=== PATIENT | male | born 1965 | race Caucasian/White ===

== ENCOUNTER 2016-11-15 08:00 | Outpatient (CLI) | payer OTHER ==
[2016-11-15 14:18] LABS: BASOPHILS % (AUTO) 0.6 %; EOSINOPHILS % (AUTO) 0.9 %; HCT - HEMATOCRIT 42.6 % (42.0-52.0); HGB - HEMOGLOBIN 14.8 g/dL (14.0-18.0); LYMPHOCYTES # (AUTO) 1.1 10^3/uL (1.5-3.5); MEAN CORPUSCULAR HEMOGLOBIN 31.1 pg (27.0-31.0); MEAN CORPUSCULAR HGB CONC 34.6 g/dL (32.0-36.0); MEAN CORPUSCULAR VOLUME 89.7 fL (80.0-94.0); MEAN PLATELET VOLUME 8.1 fL (7.4-11.4); MONOCYTES # (AUTO) 0.5 10^3/uL (0.0-1.0); MONOCYTES % (AUTO) 14.3 %; NEUTROPHILS # (AUTO) 1.9 10^3/uL (1.5-6.6); NEUTROPHILS % (AUTO) 54.2 %; NUCLEATED RED BLOOD CELLS AUTO 0.2 /100WBC; RED BLOOD COUNT 4.75 10^6/uL (4.70-6.10); RED CELL DISTRIBUTION WIDTH 13.3 % (12.0-15.0); UNCORRECTED WHITE BLOOD COUNT 3.5 x10^3/uL; WHITE BLOOD COUNT 3.5 x10^3/uL (4.8-10.8)
[2016-11-15 14:47] LABS: ALBUMIN/GLOBULIN RATIO 1.7 (1.0-2.2); BUN - BLOOD UREA NITROGEN 14 mg/dL (6-20); CALCIUM 9.2 mg/dL (8.5-10.3); CARBON DIOXIDE - CO2 27 mmol/L (21-32); CHLORIDE 107 mmol/L (101-111); CHOL/HDL RATIO 2.3 (<5.0); CHOLESTEROL 192 mg/dL; CREATININE 0.8 mg/dL (0.6-1.2); GFR - MDRD 102 (>89); GLUCOSE 93 mg/dL (70-100); HDL CHOLESTEROL 83 mg/dL; POTASSIUM 4.5 mmol/L (3.5-5.0); SODIUM 139 mmol/L (135-145); TOTAL PROTEIN 7.2 g/dL (6.7-8.2); TRIGLYCERIDES 36 mg/dL
[2016-11-15 15:07] LABS: LDL CHOLESTEROL,DIRECT 106 mg/dL
== END 2016-11-15 08:01 | disposition home or self-care (01) ==
LOC: LAB.WCP 08:00
PROVIDERS: ATTEND Family Medicine
DX: Z00.00 Encounter for general adult medical examination without abnormal findings (principal); Z12.5 Encounter for screening for malignant neoplasm of prostate; M62.82 Rhabdomyolysis
CPT/HCPCS: 36415; 80053; 80061; 82550; 84153; 85025

== ENCOUNTER 2020-04-19 15:03 | Inpatient (IN) | payer OTHER ==
--- NOTE | 2020-04-19 15:23 | ED Physician Documentation ---
History of Present Illness - Stated complaint Stated Complaint: ABD PX - Chief complaint Chief Complaint: Abd Pain - History obtained from History obtained from: Patient - History of Present Illness Timing: Today Pain level max: 0 Pain level now: 0 - Additonal information Additional information: Patient is a 54-year-old male who presents to the emergency department stating that he has had lower abdominal pain for the past 36 hours. Nothing makes it better or worse. Described as cramping. States he was able to urinate very little this morning. Feels dehydrated. Has had constipation. No diarrhea. Had a colonoscopy in 2014, revealed a polyp. Otherwise normal. He had testicular cancer 21 years ago and had prior abdominal surgery from that. nausea without vomiting. no fevers Review of Systems Ten Systems: 10 systems reviewed and negative Constitutional: denies: Fever, Chills Ears: denies: Ear pain Nose: denies: Rhinorrhea / runny nose, Congestion Throat: denies: Sore throat Respiratory: denies: Cough : denies: Dysuria Skin: denies: Rash Musculoskeletal: denies: Neck pain, Back pain Neurologic: denies: Headache PD PAST MEDICAL HISTORY - Past Medical History Cardiovascular: None Respiratory: None Endocrine/Autoimmune: None GI: None HEENT: None Psych: None Musculoskeletal: None Derm: None - Present Medications Home Medications: Ambulatory Orders Medication Instructions Recorded Confirmed No Known Home Medications 04/19/20 04/19/20 - Allergies Allergies/Adverse Reactions: Allergies Allergy/AdvReac Type Severity Reaction Status Date / Time No Known Drug Allergies Allergy Verified 04/19/20 15:06 PD ED PE NORMAL - Vitals Vital signs reviewed: Yes - General General: Alert and oriented X 3, No acute distress, Well developed/nourished - HEENT HEENT: Moist mucous membranes - Neck Neck: Supple, no meningeal sign - Cardiac Cardiac: RRR - Respiratory Respiratory: No respiratory distress, Clear bilaterally - Abdomen Abdomen: Non distended, Other (Large midline abdominal scar. Tense abdomen, diffusely tender to palpation. ) - Back Back: No CVA TTP, No spinal TTP - Derm Derm: Warm and dry - Extremities Extremities: No edema - Neuro Neuro: Alert and oriented X 3 - Psych Psych: Normal mood, Normal affect Results - Vitals Vitals: Vital Signs - 24 hr 04/19/20 04/19/20 04/19/20 15:07 15:42 18:29 Temperature 36.7 C 37.4 C Heart Rate 65 88 84 Respiratory 24 20 20 Rate Blood Pressure 122/65 154/76 H 116/74 O2 Saturation 99 98 97 Oxygen O2 Source Room air - Labs Labs: Laboratory Tests 04/19/20 04/19/20 04/19/20 15:20 15:20 15:20 WBC 11.4 H RBC 4.98 Hgb 15.5 Hct 45.3 MCV 91.0 MCH 31.1 H MCHC 34.2 RDW 11.6 L Plt Count 267 MPV 9.5 Neut # (Auto) 9.0 H Lymph # (Auto) 1.1 L [place] # (Auto) 0.9 Eos # (Auto) 0.1 Baso # (Auto) 0.0 Absolute Nucleated RBC 0.00 Band Neuts % (Manual) Not Reportable Abnorm Lymph % (Manual) Not Reportable Nucleated RBC % 0.0 Neutrophils # (Manual) Not Reportable Lymphocytes # (Manual) Not Reportable Monocytes # (Manual) Not Reportable Eosinophils # (Manual) Not Reportable Basophils # (Manual) Not Reportable Differential Comment MANUAL=AUTO DIFF Manual Slide Review Indicated Platelet Estimate NORMAL (130-450,000) Platelet Morphology NORMAL APPEARANCE RBC Morph Micro Appear NORMAL APPEARANCE Sodium 137 Potassium 4.0 Chloride 98 L Carbon Dioxide 21 Anion Gap 18.0 H BUN 12 Creatinine 1.1 Estimated GFR (MDRD) 69 L Glucose 183 H Calcium 9.5 Phosphorus 3.2 Magnesium 1.9 Total Bilirubin 1.8 H AST 15 ALT 13 Alkaline Phosphatase 47 Total Protein 7.8 Albumin 4.5 Globulin 3.3 Albumin/Globulin Ratio 1.4 Lipase 19 L - Rads (name of study) CT abd/pelvis Radiology: Prelim report reviewed, EMP read contemporaneously, See rad report PD MEDICAL DECISION MAKING - ED course Complexity details: reviewed results, re-evaluated patient, considered differential, d/w patient ED course: Patient is a 54-year-old male who presents to the emergency department with peritonitis. Unclear etiology. Given Zosyn. General surgery was consulted at 1630. Patient will be admitted for IV antibiotics and serial exams. Patient is well-appearing, nontoxic. Afebrile. This document was made in part using voice recognition software. While efforts are made to proofread this document, sound alike and grammatical errors may occur. IMPRESSION: 1. Extensive peritonitis demonstrated within the right lower quadrant and pelvis. This includes a marked enteritis involving the distal ileum with associated small foci of extraluminal gas suspicious for microperforation. There is suspected developing phlegmon formation without a discrete drainable abscess. The appendix is not discretely visualized. 2. Segmental wall thickening, enhancement, and fat stranding demonstrated in the sigmoid colon more distally in the pelvis consistent with a colitis. 3. Milder segmental wall thickening demonstrated within jejunal loops within the left abdomen compatible with a mild enteritis. Given the multiple segments of inflammatory changes involving the distal small bowel, sigmoid colon, as well as jejunum, the findings are suggestive of an infectious or inflammatory enterocolitis such as from inflammatory bowel disease. However as the appendix is not discretely visualized, perforated appendicitis with a peritonitis cannot be excluded. Findings discussed with Dr. Mercado on 04/19/2020 at 4:35 PM. 4. Cholelithiasis without CT evidence of acute cholecystitis. 5. Small hypodensities in the liver are too small to characterize and may represent cysts. However, given history of testicular cancer, metastatic disease cannot be fully excluded. Recommend comparison with prior outside studies if available or follow-up liver protocol MRI or CT for further evaluation if indicated. Departure - Departure Disposition: [facility] Clinical Impression: Peritonitis Condition: Stable Discharge Date/Time: 04/19/20 20:38
[2020-04-19] MEDS ORDERED: HYDROmorphone 1 MG/ML CARPUJECT IVP STA (15:35)
[2020-04-19] MEDS ORDERED: KETOROLAC 30 MG/ML VIAL IVP STA (15:35)
[2020-04-19 15:37] LABS: BASOPHILS % (AUTO) 0.3 %; EOSINOPHILS # (AUTO) 0.1 10^3/uL (0.0-0.7); EOSINOPHILS % (AUTO) 1.1 %; HGB - HEMOGLOBIN 15.5 g/dL (14.0-18.0); LYMPHOCYTES # (AUTO) 1.1 10^3/uL (1.5-3.5); LYMPHOCYTES % (AUTO) 9.9 %; MEAN CORPUSCULAR HEMOGLOBIN 31.1 pg (27.0-31.0); MEAN CORPUSCULAR HGB CONC 34.2 g/dL (32.0-36.0); MEAN PLATELET VOLUME 9.5 fL (7.4-11.4); MONOCYTES # (AUTO) 0.9 10^3/uL (0.0-1.0); MONOCYTES % (AUTO) 8.3 %; NEUTROPHILS % (AUTO) 79.3 %; PLT - PLATELET COUNT 267 10^3/uL (130-450); RED BLOOD COUNT 4.98 10^6/uL (4.70-6.10); RED CELL DISTRIBUTION WIDTH 11.6 % (12.0-15.0); WHITE BLOOD COUNT 11.4 x10^3/uL (4.8-10.8)
[2020-04-19 15:39] LABS: ALBUMIN 4.5 g/dL (3.2-5.5); ALBUMIN/GLOBULIN RATIO 1.4 (1.0-2.2); BILIRUBIN,TOTAL 1.8 mg/dL (0.2-1.0); CALCIUM 9.5 mg/dL (8.5-10.3); CREATININE 1.1 mg/dL (0.6-1.2); TOTAL PROTEIN 7.8 g/dL (6.7-8.2)
[2020-04-19] MEDS ORDERED: IOVERSOL 320 100 ML VIAL IVP ONE (15:49)
[2020-04-19 15:59] LABS: PLATELET ESTIMATE, MANUAL NORMAL (130-450,000) (NORMAL); PLATELET MORPHOLOGY NORMAL APPEARANCE (NORMAL); RBC MORPHOLOGY (MULTIPLE) NORMAL APPEARANCE (NORMAL)
[2020-04-19 16:00] LABS: DIFFERENTIAL COMMENT MANUAL=AUTO DIFF
[2020-04-19] MEDS: IOVERSOL 320 100 ML VIAL IVP ONE (16:21)
[2020-04-19] MEDS ORDERED: PIPERACILLIN/TAZOBACTAM 3.375 GM in SODIUM CHLORIDE 0.9% MINIBAG 100 ML IV STA (16:34)
--- NOTE | 2020-04-19 16:45 | CT Report ---
PROCEDURE: Abdomen/Pelvis W INDICATIONS: diffuse abd pain CONTRAST: IV CONTRAST: Optiray 320 ml: 100 PO CONTRAST: *NO PO CONTRAST TECHNIQUE: After the administration of intravenous contrast, 5 mm thick sections acquired from the diaphragms to the symphysis. 5 mm thick coronal and sagittal reformats were acquired. For radiation dose reducti on, the following was used: automated exposure control, adjustment of mA and/or kV according to angelica ent size. COMPARISON: None. FINDINGS: Image quality: Excellent. ABDOMEN: Lung bases: There is mild dependent atelectasis. Heart size is normal. There is a small hiatal hernia . Solid organs: There are 2 small hypodensities in the liver which are too small to characterize and ma y represent possible cysts. A few calcified gallstones are present in the gallbladder without associa eryn wall thickening or pericholecystic fluid. Biliary system is non dilated. The spleen is normal in size. Pancreas enhances normally without peripancreatic fat stranding or fluid collections. No adre nal nodules. Kidneys demonstrate no hydronephrosis. Peritoneum and bowel: There is marked segmental wall thickening and enhancement with associated fat stranding involving the distal ileum extending to the ileocecal junction. Within this region of infla mmatory fat stranding, there are a few small foci of extraluminal gas as seen on series 3 images 60 a nd 61. There is suggestion of developing phlegmon without a discrete drainable fluid collection to burr ggest an abscess. The appendix is not discretely visualized. More distally, there is also prominent s egmental wall thickening and enhancement involving the sigmoid colon with extensive pericolonic fat s tranding. In the left abdomen, there is segmental wall thickening involving a few segments of jejunum . A small amount of free fluid is present in the pelvis. Nodes and vessels: There are a few prominent subcentimeter mesenteric lymph nodes within the right mi d abdomen. Multiple surgical clips are demonstrated in the retroperitoneum consistent with prior lymp h node dissection. No definite lymphadenopathy by size criteria. Aorta and inferior vena cava are nor mal in size. Miscellaneous: No ventral hernias. PELVIS: Genitourinary: Bladder wall thickness is normal. Miscellaneous: No inguinal hernias or adenopathy. Bones: No suspicious bony lesions. No vertebral body compression fractures. IMPRESSION: 1. Extensive peritonitis demonstrated within the right lower quadrant and pelvis. This includes a mar ked enteritis involving the distal ileum with associated small foci of extraluminal gas suspicious fo r microperforation. There is suspected developing phlegmon formation without a discrete drainable abs cess. The appendix is not discretely visualized. 2. Segmental wall thickening, enhancement, and fat stranding demonstrated in the sigmoid colon more d istally in the pelvis consistent with a colitis. 3. Milder segmental wall thickening demonstrated within jejunal loops within the left abdomen compati ble with a mild enteritis. Given the multiple segments of inflammatory changes involving the distal small bowel, sigmoid colon, as well as jejunum, the findings are suggestive of an infectious or inflammatory enterocolitis such a s from inflammatory bowel disease. However as the appendix is not discretely visualized, perforated a ppendicitis with a peritonitis cannot be excluded. Findings discussed with Dr. Mercado on 04/19/2020 at 4:35 PM. 4. Cholelithiasis without CT evidence of acute cholecystitis. 5. Small hypodensities in the liver are too small to characterize and may represent cysts. However, g iven history of testicular cancer, metastatic disease cannot be fully excluded. Recommend comparison with prior outside studies if available or follow-up liver protocol MRI or CT for further evaluation if indicated. Reviewed by: Lalito Dover MD on 04/19/2020 4:44 PM PST Approved by: Lalito Dover MD on 04/19/2020 4:44 PM PST Station ID: [id number]
[2020-04-19] MEDS ORDERED: SODIUM CHLORIDE 0.9% 1,000 ML IV STA (17:52)
[2020-04-19] MEDS ORDERED: SODIUM CHLORIDE FLUSH 0.9% 10 ML SYRINGE IVP PRN (19:53)
--- NOTE | 2020-04-19 19:53 | SURGERY HX AND PHYSICAL(T) ---
Surgical History & Physical - Chief Complaint/HPI Chief Complaint: Abdominal pain, peritonitis by imaging History of Present Illness: 54-year-old male who is notable for a history of testicular cancer for which he underwent orchiectomy and open abdominal/retroperitoneal lymphadenectomy. No is sues since. Underwent no radiation by external beam. He presents with a several day history of worsening abdominal pain. Associated nausea. No personal or family history of inflammatory bowel disease. No personal or associated history of sick contacts or recent travel. Colonoscopy with no reported significant findings however patient does report that he is overdue. CT imaging was concerning for enteritis and colitis and surgical consultation was obtained for evaluation. - PMH/PSH/Social Hx Does the pt have a hx of MRSA?: No Eyes, Ears, Nose, Throat: None Cardiovascular: None Respiratory: None Skin: None Endocrine/Autoimmune: None Gastrointestinal: None Musculoskeletal: None Psychiatric: None Urologic: Testicular surgery Smoking Status: Never smoker Does the pt drink ETOH?: No Does the pt have substance abuse?: No - Home Meds and Allergies Home Medications: No Known Home Medications 04/19/20 Allergies/Adverse Reactions: Allergies Allergy/AdvReac Type Severity Reaction Status Date / Time No Known Drug Allergies Allergy Verified 04/19/20 15:06 - Review of Systems Constitutional: Fatigue, Fever Gastrointestinal: Nausea, Abdominal pain, Constipation - Vital Signs Heart Rate: 84 Blood Pressure: 116/74 Temperature: 37.4 C Respiratory Rate: 20 O2 Saturation: 97 Weight (kg): 72.575 kg Height: 1.68 m - Physical Exam General Appearance: positive: No acute distress, Alert Eyes Bilatera: positive: Normal inspection, PERRL, EOMI ENT: positive: ENT inspection nml Neck: positive: Nml inspection Respiratory: positive: Chest non-tender, No respiratory distress, Breath sounds nml. negative: Wheezes, Rales, Rhonchi Cardiovascular: positive: Regular rate & rhythm Abdomen: positive: Tenderness. negative: Guarding, Rebound Extremities: positive: Non-tender, Full ROM, Nml appearance Neurologic/Psychiatric: positive: Oriented x3, CN's nml (2-12), Motor nml, Sensation nml, Mood/affect nml - Patient Review Patient Review: Problems were reviewed with the patient during this visit. Medications were reviewed with the patient during this visit. Allergies were reviewed this patient during this visit. Pertinent Tests Reviewed: All pertitent test for this patient were reviewed. - Assessment & Plan Assessment and Plan: 54-year-old male with past medical history notable for testicular cancer status post orchiectomy and open periaortic/retroperitoneal lymphadenectomy who is had no evidence of recurrence in the 20 years since his operative intervention. He presents with a several day history of abdominal pain associated enteritis and colitis by imaging. Given his imaging, absent rebound/guarding, and concerns for a hostile abdomen in the setting of historic operative intervention and diffuse enteritis, we have discussed with the patient close monitoring, b owel rest, IV antibiotics, and repeat imaging in the a.m. He has agreed and all questions answered.
[2020-04-19] MEDS ORDERED: CIPROFLOXACIN 400 MG/200 ML 400 MG/200 ML BAG IV SCH (20:00)
[2020-04-19] MEDS ORDERED: metroNIDAZOLE 500 MG/100 ML 500 MG/100 ML BAG IV SCH (20:00)
[2020-04-19 20:14] LABS: MAGNESIUM 1.9 mg/dL (1.7-2.8); PHOSPHORUS 3.2 mg/dL (2.5-4.6)
[2020-04-19 21:14] LABS: C. PNEUMONIAE- RESP PCR PANEL NOT DETECTED
[2020-04-19] MEDS: ACETAMINOPHEN 1,000 MG/100 ML 100 ML IV SCH (21:46)
[2020-04-19] MEDS: D5NS W/20 MEQ KCL 1,000 ML IV SCH (21:50)
[2020-04-19] MEDS: polyethylene glycoL 3350 17 GM PACKET PO SCH (21:53)
[2020-04-19] MEDS: DOCUSATE SODIUM 100 MG CAPSULE PO SCH (21:53)
[2020-04-19] MEDS: HEPARIN 5,000 UNIT/ML VIAL SUBQ SCH (22:04)
[2020-04-19 22:55] LABS: GLUCOSE, URINE (UA) NEGATIVE (NEGATIVE); KETONES,URINE (UA) 40 mg/dL (NEGATIVE); LEUKOCYTE ESTERASE, URINE NEGATIVE (NEGATIVE); NITRITE,URINE NEGATIVE (NEGATIVE); OCCULT BLOOD,URINE NEGATIVE (NEGATIVE); PH,URINE 5.5 PH (5.0-7.5); PROTEIN,URINE 30 mg/dL (NEGATIVE); UROBILINOGEN,URINE 0.2 (NORMAL) E.U./dL (NORMAL)
[2020-04-19 22:58] LABS: BILIRUBIN,URINE NEGATIVE (NEGATIVE); CLARITY,URINE CLEAR (CLEAR); ICTOTEST,URINE NEGATIVE
[2020-04-19 23:02] LABS: BACTERIA,URINE None Seen /HPF (None Seen); RBC,URINE 0-5 /HPF (0-5); SQUAMOUS EPITHELIAL CELL,UR RARE Squamous (<= Few)
[2020-04-20] MEDS: metroNIDAZOLE 500 MG/100 ML 500 MG/100 ML BAG IV SCH ×3 (00:27→17:35)
[2020-04-20] MEDS: SODIUM CHLORIDE FLUSH 0.9% 10 ML SYRINGE IVP SCH ×3 (00:29→17:45)
[2020-04-20] MEDS: METOCLOPRAMIDE 10 MG/2 ML VIAL IVP SCH ×4 (00:29→18:22)
[2020-04-20] MEDS: methocarbamoL 500 MG TABLET PO SCH ×4 (00:34→18:31)
[2020-04-20] MEDS: ACETAMINOPHEN 1,000 MG/100 ML 100 ML IV SCH ×4 (02:43→21:01)
[2020-04-20 04:40] LABS: BASOPHILS % (AUTO) 0.2 %; EOSINOPHILS # (AUTO) 0.2 10^3/uL (0.0-0.7); EOSINOPHILS % (AUTO) 2.8 %; HGB - HEMOGLOBIN 12.9 g/dL (14.0-18.0); LYMPHOCYTES # (AUTO) 0.6 10^3/uL (1.5-3.5); LYMPHOCYTES % (AUTO) 8.7 %; MEAN CORPUSCULAR HEMOGLOBIN 30.8 pg (27.0-31.0); MEAN CORPUSCULAR HGB CONC 33.3 g/dL (32.0-36.0); MEAN CORPUSCULAR VOLUME 92.4 fL (80.0-94.0); MEAN PLATELET VOLUME 9.7 fL (7.4-11.4); MONOCYTES # (AUTO) 0.7 10^3/uL (0.0-1.0); MONOCYTES % (AUTO) 10.8 %; NEUTROPHILS % (AUTO) 77.2 %; PLT - PLATELET COUNT 181 10^3/uL (130-450); RED BLOOD COUNT 4.19 10^6/uL (4.70-6.10); RED CELL DISTRIBUTION WIDTH 11.6 % (12.0-15.0); WHITE BLOOD COUNT 6.5 x10^3/uL (4.8-10.8)
[2020-04-20 04:45] LABS: ALBUMIN 3.4 g/dL (3.2-5.5); ALBUMIN/GLOBULIN RATIO 1.2 (1.0-2.2); BILIRUBIN,TOTAL 1.2 mg/dL (0.2-1.0); CALCIUM 8.4 mg/dL (8.5-10.3); CREATININE 1.1 mg/dL (0.6-1.2); MAGNESIUM 1.7 mg/dL (1.7-2.8); PHOSPHORUS 4.3 mg/dL (2.5-4.6); TOTAL PROTEIN 6.2 g/dL (6.7-8.2)
[2020-04-20] MEDS: HEPARIN 5,000 UNIT/ML VIAL SUBQ SCH ×3 (06:14→23:25)
[2020-04-20] MEDS ORDERED: IOVERSOL 320 100 ML VIAL IVP ONE (07:22)
[2020-04-20] MEDS: IOVERSOL 320 100 ML VIAL IVP ONE (08:08)
--- NOTE | 2020-04-20 08:21 | XRAY Report ---
PROCEDURE: Abdomen 1 View X-Ray INDICATIONS: sbo follow up TECHNIQUE: 1 view of the abdomen were acquired. COMPARISON: CT abdomen pelvis 04/19/2020. FINDINGS: Surgical changes and devices: Multiple surgical clips are redemonstrated within the abdomen. Bowel: There are mildly distended loops of small bowel predominantly within the upper abdomen, measu ring up to 4 cm in diameter. There is bowel gas demonstrated within the transverse colon and rectum. Soft tissues: No suspicious abdominal calcifications. Bones: No suspicious bony abnormalities. IMPRESSION: 1. Mildly distended loops of small bowel likely reflecting an ileus or functional obstruction seconda ry to the inflammatory process in the distal ileum seen on recent CT. Reviewed by: Lalito oDver MD on 04/20/2020 8:20 AM PST Approved by: Lalito Dover MD on 04/20/2020 8:20 AM PST Station ID: [id number]
[2020-04-20] MEDS: polyethylene glycoL 3350 17 GM PACKET PO SCH ×2 (08:47→21:21)
[2020-04-20] MEDS: D5NS W/20 MEQ KCL 1,000 ML IV SCH ×3 (08:47→17:34)
[2020-04-20] MEDS: DOCUSATE SODIUM 100 MG CAPSULE PO SCH ×2 (08:47→21:21)
--- NOTE | 2020-04-20 09:19 | CT Report ---
PROCEDURE: Abdomen/Pelvis W INDICATIONS: evaluate for propagation of enteritis/colitis CONTRAST: IV CONTRAST: Optiray 320 ml: 100 PO CONTRAST: *NO PO CONTRAST TECHNIQUE: After the administration of intravenous contrast, 5 mm thick sections acquired from the diaphragms to the symphysis. 5 mm thick coronal and sagittal reformats were acquired. For radiation dose reducti on, the following was used: automated exposure control, adjustment of mA and/or kV according to angelica ent size. COMPARISON: CT abdomen and pelvis 04/19/2020. FINDINGS: Image quality: Excellent. ABDOMEN: Lung bases: There is posterior dependent atelectasis bilaterally. Heart size is normal. There is a s mall hiatal hernia. Solid organs: 2 small hypodensities within the liver, measuring up to 1.1 cm are redemonstrated. Find ings are too small to characterize and statistically likely represent cysts. There are multiple depen dent calcified gallstones in the gallbladder without wall thickening or pericholecystic fluid. Biliar y system is non dilated. The spleen is normal in size. Pancreas enhances normally without peripancre atic fat stranding or fluid collections. No adrenal nodules. Kidneys demonstrate no hydronephrosis. There is a small amount of residual contrast within the renal collecting systems from prior CT. Peritoneum and bowel: There are persistent inflammatory changes in the right lower quadrant with ext ensive fat stranding and a small amount of free fluid. There is a thick-walled enhancing blind ending loop now discretely demonstrated consistent with an enlarged appendix measuring up to approximately 1.8 cm in diameter. Evaluation is limited by extensive adjacent inflammatory changes involving the di stal ileum which also demonstrates segmental wall thickening, enhancement, and associated fat strandi ng consistent with an enteritis, likely secondary to the regional peritonitis. There are a few small curvilinear peripherally enhancing loculated fluid collections in the right lower quadrant adjacent t o the inflamed loops of small bowel consistent with developing abscess collections. The largest colle ction, on series 3 image 70 is crescentic in shape and measures up to approximately 3.4 x 3.3 cm in m aximal transverse dimension. More inferiorly within the pelvis, there is segmental wall thickening of the sigmoid colon redemonstrated likely representing secondary inflammatory changes due to the perit onitis. A small amount of adjacent free fluid is demonstrated in the pelvis with a peripherally enhan cing fluid collection demonstrated along the sigmoid colon measuring up to 3.9 x 2.6 cm compatible wi th a developing abscess. More proximally, there is fluid distention of multiple loops small bowel which measure up to approxim ately 4.1 cm in diameter with scattered air-fluid levels. The findings are compatible with an ileus o r functional obstruction secondary to inflammation in the distal small bowel. No definite intraperito bertram free air. Nodes and vessels: No retroperitoneal or mesenteric adenopathy by size criteria. Multiple surgical c lips are demonstrated in the retroperitoneum consistent with prior lymph node dissection. Aorta and i nferior vena cava are normal in size. Miscellaneous: No ventral hernias. PELVIS: Genitourinary: The urinary bladder is partially distended. There is extruded contrast from the patien t's prior CT. Miscellaneous: No inguinal hernias or adenopathy. Bones: No suspicious bony lesions. No vertebral body compression fractures. IMPRESSION: 1. Extensive inflammatory changes redemonstrated in the right lower quadrant with a blind ending loop now demonstrated along the cecum compatible with appendicitis. Given the extensive associated inflam matory changes, the findings likely represent sequelae of perforated appendicitis with associated per itonitis. 2. Multiple thick-walled loops of small bowel redemonstrated in the right lower quadrant likely repre senting secondary enteritis due to the regional inflammatory changes. A few small curvilinear develop ing abscess collections are demonstrated along the small bowel loops. 3. Segmental wall thickening of the sigmoid colon demonstrated more inferiorly in the pelvis also lik efrain represents a reactive colitis secondary to peritonitis. An adjacent loculated peripherally enhanc ing pericolonic fluid collection is compatible with a developing abscess. 4. Mild distention of proximal small bowel loops with air-fluid levels consistent with an ileus or fu nctional obstruction secondary to inflammatory changes in the distal small bowel. Findings were discussed with Dr. Gee on 04/20/2020 at 9:05 AM. 5. Small hypodensities within the liver appear similar to the recent prior study. Although the findin gs statistically likely represent cysts, given patient's history of testicular cancer consider a foll ow-up CT or comparison with prior studies to demonstrate stability. Reviewed by: Lalito Dover MD on 04/20/2020 9:18 AM PST Approved by: Lalito Dover MD on 04/20/2020 9:18 AM PST Station ID: [id number]
--- NOTE | 2020-04-20 09:39 | ANESTHESIA ---
Pre-Anesthesia VS, & Labs - Diagnosis Appendicitis - Procedure Lap Appy Vital Signs: Temp Pulse Resp BP Pulse Ox 37.6 C 85 20 107/61 95 04/20/20 07:52 04/20/20 07:52 04/20/20 07:52 04/20/20 07:52 04/20/20 07:52 Height: 5 ft 6 in Weight (kg): 72 kg Body Mass Index: 25.6 BMI Classification: Overweight - NPO Last Fluid Intake: 4oz clear juice at 0830 - Lab Results Current Lab Results: Laboratory Tests 04/20/20 04:01: WBC 6.5, RBC 4.19 L, Hgb 12.9 L, Hct 38.7 L, MCV 92.4, MCH 30.8, MCHC 33.3, RDW 11.6 L, Plt Count 181, MPV 9.7, Neut # (Auto) 5.0, Lymph # (Auto) 0.6 L, [place] # (Auto) 0.7, Eos # (Auto) 0.2, Baso # (Auto) 0.0, Absolute Nucleated RBC 0.00, Nucleated RBC % 0.0 04/20/20 04:01: Sodium 138, Potassium 4.7, Chloride 105, Carbon Dioxide 25, Anion Gap 8.0, BUN 17, Creatinine 1.1, Estimated GFR (MDRD) 69 L, Glucose 144 H, Calcium 8.4 L, Phosphorus 4.3, Magnesium 1.7, Total Bilirubin 1.2 H, AST 11, ALT 12, Alkaline Phosphatase 35 L, Total Protein 6.2 L, Albumin 3.4, Globulin 2.8, Albumin/Globulin Ratio 1.2 04/19/20 15:20: Phosphorus 3.2, Magnesium 1.9 04/19/20 15:20: Sodium 137, Potassium 4.0, Chloride 98 L, Carbon Dioxide 21, Anion Gap 18.0 H, BUN 12, Creatinine 1.1, Estimated GFR (MDRD) 69 L, Glucose 183 H, Calcium 9.5, Total Bilirubin 1.8 H, AST 15, ALT 13, Alkaline Phosphatase 47, Total Protein 7.8, Albumin 4.5, Globulin 3.3, Albumin/Globulin Ratio 1.4, Lipase 19 L 04/19/20 15:20: WBC 11.4 H, RBC 4.98, Hgb 15.5, Hct 45.3, MCV 91.0, MCH 31.1 H, MCHC 34.2, RDW 11.6 L, Plt Count 267, MPV 9.5, Neut # (Auto) 9.0 H, Lymph # (Auto) 1.1 L, [place] # (Auto) 0.9, Eos # (Auto) 0.1, Baso # (Auto) 0.0, Absolute Nucleated RBC 0.00, Band Neuts % (Manual) Not Reportable, Abnorm Lymph % (Manual) Not Reportable, Nucleated RBC % 0.0, Neutrophils # (Manual) Not Reportable, Lymphocytes # (Manual) Not Reportable, Monocytes # (Manual) Not Reportable, Eosinophils # (Manual) Not Reportable, Basophils # (Manual) Not Reportable, Differential Comment MANUAL=AUTO DIFF, Manual Slide Review Indicated, Platelet Estimate NORMAL (130-450,000), Platelet Morphology NORMAL APPEARANCE, RBC Morph Micro Appear NORMAL APPEARANCE Fish Bones: 04/20/20 04:01 04/20/20 04:01 Home Medications and Allergies Home Medications: Ambulatory Orders No Known Home Medications 04/19/20 Active Medications Docusate Sodium (Docusate Sodium 100 Mg Capsule) 100 mg PO BID [facility] Last Admin: 04/20/20 08:47 Dose: 100 mg Documented by: Heparin Sodium (Porcine) (Heparin 5,000 Unit/Ml Vial) 5,000 unit SUBQ TID [facility] Last Admin: 04/20/20 06:14 Dose: 5,000 unit Documented by: Potassium Chloride/Dextrose/Sod Cl () 1,000 mls @ 125 mls/hr IV .Q8H [facility] Last Admin: 04/20/20 08:47 Dose: 125 mls/hr Documented by: Acetaminophen (Ofirmev) 100 mls @ 400 mls/hr IV Q6H [facility] Last Infusion: 04/20/20 09:20 Dose: Infused Documented by: Ciprofloxacin (Cipro 400 Mg/200 Ml) 400 mg in 200 mls @ 200 mls/hr IV Q12H LOC Metronidazole (Flagyl 500 Mg/100 Ml) 500 mg in 100 mls @ 100 mls/hr IV Q8H [facility] Last Admin: 04/20/20 09:20 Dose: 100 mls/hr Documented by: Methocarbamol (Methocarbamol 500 Mg Tablet) 500 mg PO Q6HR [facility] Last Admin: 04/20/20 06:20 Dose: 500 mg Documented by: Metoclopramide HCl (Metoclopramide 10 Mg/2 Ml Vial) 10 mg IVP Q6HR [facility] Last Admin: 04/20/20 06:17 Dose: 10 mg Documented by: Polyethylene Glycol (Polyethylene Glycol 3350 17 Gm Packet) 17 gm PO BID [facility] Last Admin: 04/20/20 08:47 Dose: 17 gm Documented by: Sodium Chloride (Sodium Chloride Flush 0.9% 10 Ml Syringe) 10 ml IVP 0100,0900,1700 [facility] Last Admin: 04/20/20 08:47 Dose: 10 ml Documented by: Sodium Chloride (Sodium Chloride Flush 0.9% 10 Ml Syringe) 10 ml IVP PRN PRN PRN Reason: NEEDED PER PROVIDER ORDERS No Known Home Medications 04/19/20 Allergies/Adverse Reactions: Allergies Allergy/AdvReac Type Severity Reaction Status Date / Time No Known Drug Allergies Allergy Verified 04/19/20 15:06 Anes History & Medical History - Anesthetic History Anesthesia Complications: reports: No previous complications - Medical History Cardiovascular: reports: None Pulmonary: reports: None Gastrointestinal: reports: None Urinary: reports: None Neuro: reports: None Musculoskeletal: reports: None Endocrine/Autoimmune: reports: None Blood Disorders: reports: None Skin: reports: None Smoking Status: Never smoker Psychosocial: reports: No issues indicated History of Cancer?: Yes (testicular) - Surgical History Urologic: Testicular surgery Exam General: Alert, Oriented x3, Cooperative, No acute distress Dental: WNL Mouth Openin Fingerbreadth Neck Mobility: Normal Mallampati classification: II Thyromental Distance: 4-6 cm Respiratory: Lungs clear, Normal breath sounds, No respiratory distress, No accessory muscle use Cardiovascular: Regular rate, Normal S1, Normal S2, No murmurs Mental/Cognitive Status: Alert/Oriented X3, Normal for patient Plan Anesthesia Type: General Consent for Procedure(s) Verified and Reviewed: Yes Code Status: Attempt Resuscitation ASA classification: 1-Healthy patient Is this case an emergency?: No
[2020-04-20] MEDS ORDERED: MORPHINE 2 MG/ML CARPUJECT IVP PRN (09:56)
[2020-04-20] MEDS ORDERED: HYDROmorphone 0.5 MG/0.5 ML SYRINGE IVP PRN (09:56)
[2020-04-20] MEDS ORDERED: fentaNYL 100 MCG/2 ML VIAL IVP PRN (09:56)
[2020-04-20] MEDS ORDERED: ATROPINE ABBOJECT 1 MG/10 ML SYRINGE IVP PRN (09:56)
[2020-04-20] MEDS ORDERED: NALOXONE 0.4 MG/ML VIAL IVP PRN (09:56)
[2020-04-20] MEDS ORDERED: ONDANSETRON 4 MG/2 ML VIAL IVP PRN (09:56)
[2020-04-20] MEDS ORDERED: LACTATED RINGERS 1,000 ML IV SCH (10:00)
[2020-04-20] MEDS: CIPROFLOXACIN 400 MG/200 ML 400 MG/200 ML BAG IV SCH ×2 (10:42→23:24)
--- NOTE | 2020-04-20 11:05 | PHARMACY PROGRESS NOTE ---
- Best Possible Medication History Admit Date and Time: 04/19/201952 Processed by: Pharmacy Patient Interview: Pt interview ONLY source (interview completed by dinora 04/20, pt on no medications) As the person ultimately responsible for medication therapy, providers are able to order a medication from an existing home medication list in [facility] via the "Reconcile Routine" prior to Confirmation of that medication by cell support operator. Such practice is discouraged except when the physician, in their clinical judgment, deems that a medical need exists for a medication without regard to previous use.
[2020-04-20] MEDS ORDERED: LIDOCAINE 2%-EPI 1:100000 20 ML MDV ONE (11:30)
[2020-04-20] MEDS ORDERED: BUPIVACAINE 0.5% PF 30 ML VIAL ONE (11:30)
[2020-04-20] MEDS ORDERED: ROCURONIUM 50 MG/5 ML VIAL ONE ×2 (13:20→14:57)
[2020-04-20] MEDS ORDERED: MIDAZOLAM 2 MG/2 ML VIAL ONE (13:20)
[2020-04-20] MEDS ORDERED: LIDOCAINE-MPF 2% 5 ML VIAL ONE (13:20)
[2020-04-20] MEDS ORDERED: fentaNYL 100 MCG/2 ML VIAL ONE ×2 (13:20→16:24)
[2020-04-20] MEDS ORDERED: PROPOFOL 200 MG/20 ML VIAL IVP ONE (13:20)
[2020-04-20] MEDS ORDERED: LIDOCAINE 2%-EPI 1:100000 20 ML MDV SUBQ ONE ×2 (13:22)
[2020-04-20] MEDS ORDERED: BUPIVACAINE 0.5% PF 30 ML VIAL SUBQ ONE ×2 (13:22)
[2020-04-20] MEDS ORDERED: DEXAMETHASONE 4 MG/ML VIAL ONE (13:45)
[2020-04-20] MEDS ORDERED: ONDANSETRON 4 MG/2 ML VIAL ONE (13:45)
[2020-04-20] MEDS ORDERED: KETOROLAC 30 MG/ML VIAL ONE (13:45)
--- NOTE | 2020-04-20 13:50 | PROVIDER PROGRESS NOTE ---
Progress Note Subjective Pain overall improved. Repeat imaging obtained. Objective Afebrile hemodynamically acceptable General Appearance: positive: No acute distress Eyes Bilateral: positive: Normal inspection ENT: positive: ENT inspection nml Neck: positive: Nml inspection Respiratory: positive: Chest non-tender, No respiratory distress, Breath sounds nml. negative: Wheezes, Rales, Rhonchi Cardiovascular: positive: Regular rate & rhythm Abdomen: positive: No distention, Other. negative: Guarding, Rebound Extremities: positive: Non-tender, Full ROM, Nml appearance Neurologic/Psychiatric: positive: Oriented x3, CN's nml (2-12) Abdomen specified, persistent pain right lower quadrant, no rebound, no guarding, no generalized peritonitis. Radiology: Repeat CT abdomen pelvis impression reveals a dilated blind looped structure consistent with an acute appendicitis that appears to have ruptured with associated fluid collection. All surrounding enteritis and colitis are potentially secondary to the primary appendiceal process. Impression/Plan 54-year-old male presenting with acute appendicitis with multiple comorbid states including remote history of testicular cancer. Leukocytosis to 11 on admission, CT imaging repeated which on second study clearly indicated acute appendicitis, perforated. Plan going forward is as follows: 1. Bowel rest, IV fluid resuscitation, IV antibiotics. 2. Planned diagnostic laparoscopy, laparoscopic appendectomy, other indicated procedures. Patient counseled of the risk associated with operative intervention including but not limited to conversion to open procedure, injury to local structures, and anesthesia risks of heart attack, stroke, . 3. Postoperative care under observation status with continued IV antibiotics. 4. Patient advised of the potential to convert to open intervention, the possibility for necessary bowel resection, amongst others. He will also have drain placement. He will also necessitate PICC line placement for long-term IV antibiotics. Please note that voice recognition software was used to transcribe this note and inadvertent errors might persist in spite of review and editing. I am obliged to you for your attention. I am thankful to you for allowing me to participate with you in this care of this patient.
[2020-04-20] MEDS ORDERED: ROPIVACAINE 0.5% PF 20 ML AMPULE ONE (14:31)
[2020-04-20] MEDS ORDERED: SODIUM CHLORIDE 0.9% 40 ML ONE (14:32)
[2020-04-20] MEDS ORDERED: ePHEDrine 50 MG/ML VIAL IVP ONE (14:49)
[2020-04-20] MEDS ORDERED: SUGAMMADEX 200 MG/2 ML VIAL IVP ONE (15:58)
[2020-04-20] MEDS ORDERED: HYDROmorphone PCA 20MG/100ML IV PRN (16:11)
[2020-04-20] MEDS ORDERED: SODIUM CHLORIDE FLUSH 0.9% 10 ML SYRINGE IVP PRN (16:12)
--- NOTE | 2020-04-20 16:22 | OPERATIVE REPORT ---
Operative Report - General Admit Date: 04/19/20 Procedure Date: 04/20/20 Planned Procedure: 1. Planned diagnostic laparoscopy 2. Planned laparoscopic appendectomy 3. Anticipated adhesiolysis 4. Anticipated drain placement with washout. Pre-Op Diagnosis: Presumptive perforated appe, with 2o enteritis & colitis. History of comple Procedure Performed: 1. Exploratory laparotomy 2. Extensive greater than 2 hours lysis of adhesions 3. Serosal repair x2 4. Mobilization of right colon 5. Appendectomy with partial cecectomy 6. Decompression of small bowel retrograde 7. NG tube placement, laparotomy assisted 8. Seprafilm antiadhesive barrier placement next 9. Wound VAC placement 10. Washout, decompression of the abscess, and wide local drainage 11. Tap block Post Op Diagnosis: Same; extensive adhesions requiring lysis > 2 hr; Large phlegmon - Procedure Note Primary Surgeon: Gerard Secondary Surgeon: Shelton Anesthesia Provider: Vivek Anesthesia Technique: General ET tube, Regional block Pathology: Appendix with portion of cecum; aspirate for culture, swab for culture Estimated Blood Loss (mL): 100 Drain/Tube Type: Cristobal drain, Other (1. Left upper quadrant Cristobal drain within the pelvic inlet at the level of the historic appendix and phlegmon 2. Left lower quadrant drain overlying the right hepatic dome 3. Castillo catheter 4. Wound VAC 5. Nasogastric tube placed with laparotomy assistance) Indications: See electronic medical record and admission note Findings: 1. Dense adhesions and hostile abdomen from history of retroperitoneal lymph node dissection 2. Extensive enteritis secondary to perforated appendicitis with large phlegmon and feculent purulent peritonitis 3. Colitis/cecitis along the ascending colon 4. Inflammatory ileus secondary to extensive peritonitis Complications: None - Other Other Information/Narrative: Pending final note
[2020-04-20] MEDS ORDERED: LACTATED RINGERS 1,000 ML IV ONE (16:43)
--- NOTE | 2020-04-20 17:07 | OPERATIVE REPORT ---
Operative Report - General Admit Date: 04/19/20 Procedure Date: 04/20/20
--- NOTE | 2020-04-20 19:17 | ANESTHESIA POST OP EVALUATION ---
Anesthesia Post Eval - Post Anesthesia Eval Vitals: Last Vital Signs Temp 36.7 C 04/20/20 17:00 Pulse 101 H 04/20/20 19:00 Resp 14 04/20/20 19:00 BP 134/84 H 04/20/20 19:00 Pulse Ox 96 04/20/20 19:00 CV Function Including HR & BP: positive: Stable Pain Control: positive: Satisfactory Nausea & Vomiting: positive: Negative Mental Status: positive: Baseline Respiratory Status: Airway Patent Hydration Status: Satisfactory Anesthesia Complications: positive: None
[2020-04-21] MEDS: METOCLOPRAMIDE 10 MG/2 ML VIAL IVP SCH ×5 (01:46→23:58)
[2020-04-21] MEDS: metroNIDAZOLE 500 MG/100 ML 500 MG/100 ML BAG IV SCH ×4 (01:46→23:57)
[2020-04-21] MEDS: methocarbamoL 500 MG TABLET PO SCH ×5 (01:46→23:58)
[2020-04-21] MEDS: SODIUM CHLORIDE FLUSH 0.9% 10 ML SYRINGE IVP SCH ×3 (01:47→17:35)
[2020-04-21] MEDS: ACETAMINOPHEN 1,000 MG/100 ML 100 ML IV SCH ×4 (02:54→21:42)
[2020-04-21 04:31] LABS: BASOPHILS % (AUTO) 0.1 %; HGB - HEMOGLOBIN 14.1 g/dL (14.0-18.0); LYMPHOCYTES # (AUTO) 0.4 10^3/uL (1.5-3.5); LYMPHOCYTES % (AUTO) 3.6 %; MEAN CORPUSCULAR HEMOGLOBIN 31.1 pg (27.0-31.0); MEAN CORPUSCULAR HGB CONC 33.9 g/dL (32.0-36.0); MEAN CORPUSCULAR VOLUME 91.6 fL (80.0-94.0); MEAN PLATELET VOLUME 9.8 fL (7.4-11.4); MONOCYTES # (AUTO) 0.6 10^3/uL (0.0-1.0); MONOCYTES % (AUTO) 5.7 %; NEUTROPHILS # (AUTO) 9.5 10^3/uL (1.5-6.6); NEUTROPHILS % (AUTO) 90.2 %; PLT - PLATELET COUNT 251 10^3/uL (130-450); RED BLOOD COUNT 4.54 10^6/uL (4.70-6.10); RED CELL DISTRIBUTION WIDTH 11.5 % (12.0-15.0); WHITE BLOOD COUNT 10.5 x10^3/uL (4.8-10.8)
[2020-04-21 04:46] LABS: ALBUMIN 3.1 g/dL (3.2-5.5); ALBUMIN/GLOBULIN RATIO 1.1 (1.0-2.2); BILIRUBIN,TOTAL 0.9 mg/dL (0.2-1.0); CALCIUM 7.9 mg/dL (8.5-10.3); CREATININE 1.1 mg/dL (0.6-1.2); MAGNESIUM 1.7 mg/dL (1.7-2.8); PHOSPHORUS 2.6 mg/dL (2.5-4.6); TOTAL PROTEIN 5.9 g/dL (6.7-8.2)
[2020-04-21] MEDS: D5NS W/20 MEQ KCL 1,000 ML IV SCH ×3 (05:45→21:57)
[2020-04-21] MEDS: HEPARIN 5,000 UNIT/ML VIAL SUBQ SCH ×3 (05:51→21:54)
[2020-04-21] MEDS ORDERED: KETOROLAC 30 MG/ML VIAL IVP PRN (05:58)
[2020-04-21] MEDS ORDERED: KETOROLAC 30 MG/ML VIAL ONE (06:13)
[2020-04-21] MEDS ORDERED: LACTATED RINGERS 1,000 ML IV ONE ×3 (08:24→19:06)
[2020-04-21] MEDS: polyethylene glycoL 3350 17 GM PACKET PO SCH ×2 (09:22→21:48)
[2020-04-21] MEDS: DOCUSATE SODIUM 100 MG CAPSULE PO SCH ×2 (09:22→21:48)
[2020-04-21] MEDS: CIPROFLOXACIN 400 MG/200 ML 400 MG/200 ML BAG IV SCH ×2 (11:30→22:04)
--- NOTE | 2020-04-21 11:51 | ANESTHESIA PROCEDURE NOTE ---
Anesth Central Line Template - Central Line Central Line Preparation: Consent Obtained Central line location: Right Basilic Central line type: PICC Single Lumen Central line catheter tip site resides: Superior vena cava (SVC) Central line aftercare: Secured, Placement confirmed, No pneumothorax, No complications, Bundle checklist complete, Pt tolerated well
--- NOTE | 2020-04-21 11:53 | XRAY Report ---
PROCEDURE: Chest for Line Placement INDICATIONS: check for PICC line placement TECHNIQUE: One view of the chest was acquired. COMPARISON: None FINDINGS: Surgical changes and devices: NGT is present, tip of which is looped within the gastric lumen. Right arm PICC is present, tip of which is in the right atrium. This could be withdrawn by roughly 4 cm. Lungs and pleura: No pleural effusions or pneumothorax. Mild bibasilar atelectasis versus pneumonia. Mediastinum: Mediastinal contours appear normal. Heart size is normal. Bones and chest wall: No suspicious bony lesions. Overlying soft tissues appear unremarkable. IMPRESSION: 1. Right arm PICC tip is within the right atrium, and could be withdrawn by roughly 4 cm. 2. Mild bibasilar atelectasis versus pneumonia. Reviewed by: Kathrin Alaniz MD on 04/21/2020 11:52 AM PST Approved by: Kathrin Alaniz MD on 04/21/2020 11:52 AM PST Station ID: [id number]
--- NOTE | 2020-04-21 12:09 | CONSULTATION NOTE ---
Consultation Report: PICC line pulled back 4 cm per recommendation of radiologist. Sterile technique maintained and new sterile dressing applied.
[2020-04-21] MEDS: INSULIN REGULAR HUMAN 300 UNIT/3 ML VIAL SUBQ SCH ×3 (12:17→23:55)
--- NOTE | 2020-04-21 12:36 | XRAY Report ---
PROCEDURE: Chest for Line Placement INDICATIONS: placement for PICC line TECHNIQUE: One view of the chest was acquired. COMPARISON: 04/21/2020 at 1120 hours. FINDINGS: Surgical changes and devices: Tip of PICC line projects over the cavoatrial junction. Lungs and pleura: No pleural effusions or pneumothorax. Patchy opacities in the lung bases bilateral ly stable compared to prior exam. Mediastinum: Mediastinal contours appear normal. Heart size is normal. Bones and chest wall: No suspicious bony lesions. Overlying soft tissues appear unremarkable. IMPRESSION: PICC line tip at the cavoatrial junction Reviewed by: Mattie Maxwell MD, PhD on 04/21/2020 12:35 PM PST Approved by: Mattie Maxwell MD, PhD on 04/21/2020 12:35 PM PST Station ID: [id number]
--- NOTE | 2020-04-21 16:36 | PROVIDER PROGRESS NOTE ---
Subjective - Subjective Pt reports feeling: No change Objective - Vital Signs/Intake & Output Reviewed Vital Signs: Yes Vital Signs: Vital Signs x48h Temp Pulse Resp BP Pulse Ox 04/21/20 11:48 36.6 C 94 32 H 125/83 H 96 04/21/20 10:00 37.4 C 90 31 H 152/94 H 98 04/21/20 09:00 37.4 C 87 28 H 152/94 H 97 Intake & Output: Intake & Output 04/18/20 04/19/20 04/20/20 04/21/20 23:59 23:59 23:59 23:59 Intake Total 400 3564.583 4582.501 Output Total 252 098 3237 Balance 150 3039.583 2629.501 - Objective General Appearance: positive: No acute distress, Alert Eyes Bilateral: positive: Normal inspection, PERRL, EOMI ENT: positive: Pharynx nml Neck: positive: No JVD Respiratory: positive: No respiratory distress Cardiovascular: positive: Regular rate & rhythm Abdomen: positive: Other (dressing/ vac c/d/i radha serosanguinous ngt thick brown) Neurologic/Psychiatric: positive: Oriented x3 - Lab Results Fish Bones: 04/21/20 04:00 04/21/20 04:00 Other Labs: Lab Results x24hrs 04/21/20 04/21/20 04/21/20 Range/Units 12:03 04:00 04:00 WBC 10.5 (4.8-10.8) x10^3/uL RBC 4.54 L (4.70-6.10) 10^6/uL Hgb 14.1 (14.0-18.0) g/dL Hct 41.6 L (42.0-52.0) % MCV 91.6 (80.0-94.0) fL MCH 31.1 H (27.0-31.0) pg MCHC 33.9 (32.0-36.0) g/dL RDW 11.5 L (12.0-15.0) % Plt Count 251 (130-450) 10^3/uL MPV 9.8 (7.4-11.4) fL Neut # (Auto) 9.5 H (1.5-6.6) 10^3/uL Lymph # (Auto) 0.4 L (1.5-3.5) 10^3/uL [place] # (Auto) 0.6 (0.0-1.0) 10^3/uL Eos # (Auto) 0.0 (0.0-0.7) 10^3/uL Baso # (Auto) 0.0 (0.0-0.1) 10^3/uL Absolute Nucleated RBC 0.00 x10^3/uL Nucleated RBC % 0.0 /100WBC Sodium 134 L (135-145) mmol/L Potassium 4.4 (3.5-5.0) mmol/L Chloride 104 (101-111) mmol/L Carbon Dioxide 22 (21-32) mmol/L Anion Gap 8.0 (6-13) BUN 18 (6-20) mg/dL Creatinine 1.1 (0.6-1.2) mg/dL Estimated GFR (MDRD) 69 L (>89) Glucose 210 H (70-100) mg/dL POC Whole Bld Glucose 143 H (70 - 100) mg/dL Calcium 7.9 L (8.5-10.3) mg/dL Phosphorus 2.6 (2.5-4.6) mg/dL Magnesium 1.7 (1.7-2.8) mg/dL Total Bilirubin 0.9 (0.2-1.0) mg/dL AST 16 (10-42) IU/L ALT 19 (10-60) IU/L Alkaline Phosphatase 42 (42-121) IU/L Total Protein 5.9 L (6.7-8.2) g/dL Albumin 3.1 L (3.2-5.5) g/dL Globulin 2.8 (2.1-4.2) g/dL Albumin/Globulin Ratio 1.1 (1.0-2.2) Nasal Screen MRSA (PCR) (NEGATIVE) 04/20/20 Range/Units 18:00 WBC (4.8-10.8) x10^3/uL RBC (4.70-6.10) 10^6/uL Hgb (14.0-18.0) g/dL Hct (42.0-52.0) % MCV (80.0-94.0) fL MCH (27.0-31.0) pg MCHC (32.0-36.0) g/dL RDW (12.0-15.0) % Plt Count (130-450) 10^3/uL MPV (7.4-11.4) fL Neut # (Auto) (1.5-6.6) 10^3/uL Lymph # (Auto) (1.5-3.5) 10^3/uL [place] # (Auto) (0.0-1.0) 10^3/uL Eos # (Auto) (0.0-0.7) 10^3/uL Baso # (Auto) (0.0-0.1) 10^3/uL Absolute Nucleated RBC x10^3/uL Nucleated RBC % /100WBC Sodium (135-145) mmol/L Potassium (3.5-5.0) mmol/L Chloride (101-111) mmol/L Carbon Dioxide (21-32) mmol/L Anion Gap (6-13) BUN (6-20) mg/dL Creatinine (0.6-1.2) mg/dL Estimated GFR (MDRD) (>89) Glucose (70-100) mg/dL POC Whole Bld Glucose (70 - 100) mg/dL Calcium (8.5-10.3) mg/dL Phosphorus (2.5-4.6) mg/dL Magnesium (1.7-2.8) mg/dL Total Bilirubin (0.2-1.0) mg/dL AST (10-42) IU/L ALT (10-60) IU/L Alkaline Phosphatase (42-121) IU/L Total Protein (6.7-8.2) g/dL Albumin (3.2-5.5) g/dL Globulin (2.1-4.2) g/dL Albumin/Globulin Ratio (1.0-2.2) Nasal Screen MRSA (PCR) NEGATIVE (NEGATIVE) Assessment/Plan - Problem List (1) Peritonitis Impression: he had very significant appendicitis with peritonitis creating significant near diffuse inflammation of his small intestine ileus for days anticipated picc has been placed nutrition/ pharmacy consult for tpn ivf bolus for poor urine output
[2020-04-21] MEDS: FAT EMULSION 20% 250 ML IV SCH (18:46)
[2020-04-21] MEDS ORDERED: ASCORBIC ACID IV SCH ×5 (19:00)
[2020-04-21] MEDS ORDERED: TPN IV SCH ×5 (19:00)
[2020-04-21] MEDS ORDERED: [UNRECOGNIZED DRUG - OTHER] IV SCH ×5 (19:00)
[2020-04-21] MEDS ORDERED: FOLIC ACID IV SCH ×5 (19:00)
[2020-04-22] MEDS: SODIUM CHLORIDE FLUSH 0.9% 10 ML SYRINGE IVP SCH ×3 (00:07→16:47)
[2020-04-22] MEDS: ACETAMINOPHEN 1,000 MG/100 ML 100 ML IV SCH ×2 (02:56→10:21)
[2020-04-22 04:46] LABS: BASOPHILS % (AUTO) 0.1 %; EOSINOPHILS % (AUTO) 0.1 %; LYMPHOCYTES # (AUTO) 0.6 10^3/uL (1.5-3.5); LYMPHOCYTES % (AUTO) 6.6 %; MEAN CORPUSCULAR HEMOGLOBIN 30.8 pg (27.0-31.0); MEAN CORPUSCULAR HGB CONC 33.3 g/dL (32.0-36.0); MEAN CORPUSCULAR VOLUME 92.5 fL (80.0-94.0); MEAN PLATELET VOLUME 9.6 fL (7.4-11.4); MONOCYTES # (AUTO) 0.5 10^3/uL (0.0-1.0); MONOCYTES % (AUTO) 5.5 %; NEUTROPHILS # (AUTO) 8.1 10^3/uL (1.5-6.6); NEUTROPHILS % (AUTO) 87.3 %; PLT - PLATELET COUNT 221 10^3/uL (130-450); RED BLOOD COUNT 3.89 10^6/uL (4.70-6.10); RED CELL DISTRIBUTION WIDTH 11.6 % (12.0-15.0); WHITE BLOOD COUNT 9.3 x10^3/uL (4.8-10.8)
[2020-04-22 05:02] LABS: ALBUMIN 2.6 g/dL (3.2-5.5); ALBUMIN/GLOBULIN RATIO 0.9 (1.0-2.2); BILIRUBIN,TOTAL 0.6 mg/dL (0.2-1.0); CALCIUM 8.1 mg/dL (8.5-10.3); CREATININE 0.9 mg/dL (0.6-1.2); MAGNESIUM 1.9 mg/dL (1.7-2.8); PHOSPHORUS 2.1 mg/dL (2.5-4.6); TOTAL PROTEIN 5.6 g/dL (6.7-8.2)
[2020-04-22] MEDS: methocarbamoL 500 MG TABLET PO SCH ×3 (05:22→17:47)
[2020-04-22] MEDS: INSULIN REGULAR HUMAN 300 UNIT/3 ML VIAL SUBQ SCH ×3 (06:05→18:13)
[2020-04-22] MEDS: HEPARIN 5,000 UNIT/ML VIAL SUBQ SCH ×3 (06:06→20:57)
[2020-04-22] MEDS: METOCLOPRAMIDE 10 MG/2 ML VIAL IVP SCH ×3 (06:09→17:46)
[2020-04-22] MEDS: metroNIDAZOLE 500 MG/100 ML 500 MG/100 ML BAG IV SCH ×2 (10:47→16:57)
[2020-04-22] MEDS: polyethylene glycoL 3350 17 GM PACKET PO SCH ×2 (11:02→20:53)
[2020-04-22] MEDS: DOCUSATE SODIUM 100 MG CAPSULE PO SCH ×2 (11:02→20:53)
[2020-04-22] MEDS: CIPROFLOXACIN 400 MG/200 ML 400 MG/200 ML BAG IV SCH ×2 (11:59→20:55)
--- NOTE | 2020-04-22 13:07 | PROVIDER PROGRESS NOTE ---
Subjective - Prog Note Date Prog Note Date: 04/22/20 - Subjective Pt reports feeling: Improved (less painful today and more energy.) Objective - Vital Signs/Intake & Output Reviewed Vital Signs: Yes Vital Signs: Vital Signs x48h Temp Pulse Resp BP BP Pulse Ox 04/22/20 12:22 36.5 C 70 16 135/74 H 96 04/22/20 07:56 37.1 C 68 16 141/77 H 94 Intake & Output: Intake & Output 04/19/20 04/20/20 04/21/20 04/22/20 23:59 23:59 23:59 23:59 Intake Total 400 3564.583 6310.834 670 Output Total 654 263 0063 1740 Balance 150 3039.583 3552.834 -1070 - Objective General Appearance: positive: No acute distress, Alert Eyes Bilateral: positive: Normal inspection, PERRL, EOMI ENT: positive: No signs of dehydration Neck: positive: No JVD Respiratory: positive: No respiratory distress Abdomen: positive: Non-tender, Other ( no erythema. radha serosanguinous) Extremities: positive: No pedal edema Neurologic/Psychiatric: positive: Oriented x3 - Lab Results Fish Bones: 04/22/20 04:06 04/22/20 04:06 Other Labs: Lab Results x24hrs 04/22/20 04/22/20 04/22/20 Range/Units 11:13 05:55 04:06 WBC (4.8-10.8) x10^3/uL RBC (4.70-6.10) 10^6/uL Hgb (14.0-18.0) g/dL Hct (42.0-52.0) % MCV (80.0-94.0) fL MCH (27.0-31.0) pg MCHC (32.0-36.0) g/dL RDW (12.0-15.0) % Plt Count (130-450) 10^3/uL MPV (7.4-11.4) fL Neut # (Auto) (1.5-6.6) 10^3/uL Lymph # (Auto) (1.5-3.5) 10^3/uL [place] # (Auto) (0.0-1.0) 10^3/uL Eos # (Auto) (0.0-0.7) 10^3/uL Baso # (Auto) (0.0-0.1) 10^3/uL Absolute Nucleated RBC x10^3/uL Nucleated RBC % /100WBC Sodium 140 (135-145) mmol/L Potassium 3.5 (3.5-5.0) mmol/L Chloride 103 (101-111) mmol/L Carbon Dioxide 24 (21-32) mmol/L Anion Gap 13.0 (6-13) BUN 18 (6-20) mg/dL Creatinine 0.9 (0.6-1.2) mg/dL Estimated GFR (MDRD) 87 L (>89) Glucose 164 H (70-100) mg/dL POC Whole Bld Glucose 176 H 156 H (70 - 100) mg/dL Calcium 8.1 L (8.5-10.3) mg/dL Phosphorus 2.1 L (2.5-4.6) mg/dL Magnesium 1.9 (1.7-2.8) mg/dL Total Bilirubin 0.6 (0.2-1.0) mg/dL AST 12 (10-42) IU/L ALT 14 (10-60) IU/L Alkaline Phosphatase 38 L (42-121) IU/L Total Protein 5.6 L (6.7-8.2) g/dL Albumin 2.6 L (3.2-5.5) g/dL Globulin 3.0 (2.1-4.2) g/dL Albumin/Globulin Ratio 0.9 L (1.0-2.2) Prealbumin 6 L (18-45) mg/dL Triglycerides 72 ( - 149) mg/dL 04/22/20 04/21/20 04/21/20 Range/Units 04:06 23:46 17:38 WBC 9.3 (4.8-10.8) x10^3/uL RBC 3.89 L (4.70-6.10) 10^6/uL Hgb 12.0 L (14.0-18.0) g/dL Hct 36.0 L (42.0-52.0) % MCV 92.5 (80.0-94.0) fL MCH 30.8 (27.0-31.0) pg MCHC 33.3 (32.0-36.0) g/dL RDW 11.6 L (12.0-15.0) % Plt Count 221 (130-450) 10^3/uL MPV 9.6 (7.4-11.4) fL Neut # (Auto) 8.1 H (1.5-6.6) 10^3/uL Lymph # (Auto) 0.6 L (1.5-3.5) 10^3/uL [place] # (Auto) 0.5 (0.0-1.0) 10^3/uL Eos # (Auto) 0.0 (0.0-0.7) 10^3/uL Baso # (Auto) 0.0 (0.0-0.1) 10^3/uL Absolute Nucleated RBC 0.00 x10^3/uL Nucleated RBC % 0.0 /100WBC Sodium (135-145) mmol/L Potassium (3.5-5.0) mmol/L Chloride (101-111) mmol/L Carbon Dioxide (21-32) mmol/L Anion Gap (6-13) BUN (6-20) mg/dL Creatinine (0.6-1.2) mg/dL Estimated GFR (MDRD) (>89) Glucose (70-100) mg/dL POC Whole Bld Glucose 194 H 142 H (70 - 100) mg/dL Calcium (8.5-10.3) mg/dL Phosphorus (2.5-4.6) mg/dL Magnesium (1.7-2.8) mg/dL Total Bilirubin (0.2-1.0) mg/dL AST (10-42) IU/L ALT (10-60) IU/L Alkaline Phosphatase (42-121) IU/L Total Protein (6.7-8.2) g/dL Albumin (3.2-5.5) g/dL Globulin (2.1-4.2) g/dL Albumin/Globulin Ratio (1.0-2.2) Prealbumin (18-45) mg/dL Triglycerides ( - 149) mg/dL Assessment/Plan - Problem List (1) Peritonitis Impression: feeling better today. he had a very significant inflammatory response. anticipate ileus for days tpn continue present care d/c melonie
[2020-04-22] MEDS ORDERED: HYDROmorphone PCA 20MG/100ML IV PRN (14:24)
[2020-04-22] MEDS: ACETAMINOPHEN 1,000 MG/100 ML 100 ML IV PRN ×2 (16:24→23:00)
[2020-04-22] MEDS ORDERED: LACTATED RINGERS 1,000 ML IV ONE (17:11)
[2020-04-22] MEDS: TPN IV SCH ×4 (18:04)
[2020-04-22] MEDS: THIAMINE IV SCH ×4 (18:04)
[2020-04-22] MEDS: [UNRECOGNIZED DRUG - OTHER] IV SCH ×4 (18:04)
[2020-04-22] MEDS: FAT EMULSION 20% 250 ML IV SCH (18:04)
[2020-04-22] MEDS: FOLIC ACID IV SCH ×4 (18:04)
[2020-04-22] MEDS: D5NS W/20 MEQ KCL 1,000 ML IV SCH (23:03)
[2020-04-23] MEDS: metroNIDAZOLE 500 MG/100 ML 500 MG/100 ML BAG IV SCH ×3 (00:33→17:42)
[2020-04-23] MEDS: SODIUM CHLORIDE FLUSH 0.9% 10 ML SYRINGE IVP SCH ×3 (00:37→17:33)
[2020-04-23] MEDS: METOCLOPRAMIDE 10 MG/2 ML VIAL IVP SCH ×4 (00:37→18:03)
[2020-04-23] MEDS: methocarbamoL 500 MG TABLET PO SCH ×4 (00:42→18:03)
[2020-04-23] MEDS: INSULIN REGULAR HUMAN 300 UNIT/3 ML VIAL SUBQ SCH ×4 (00:53→18:02)
[2020-04-23] MEDS: SODIUM CHLORIDE FLUSH 0.9% 10 ML SYRINGE IVP PRN ×2 (05:34→05:35)
[2020-04-23] MEDS: ACETAMINOPHEN 1,000 MG/100 ML 100 ML IV PRN ×3 (05:37→22:02)
[2020-04-23 05:51] LABS: BASOPHILS % (AUTO) 0.2 %; EOSINOPHILS # (AUTO) 0.1 10^3/uL (0.0-0.7); EOSINOPHILS % (AUTO) 0.6 %; HGB - HEMOGLOBIN 11.7 g/dL (14.0-18.0); LYMPHOCYTES # (AUTO) 0.8 10^3/uL (1.5-3.5); LYMPHOCYTES % (AUTO) 9.5 %; MEAN CORPUSCULAR HEMOGLOBIN 30.8 pg (27.0-31.0); MEAN CORPUSCULAR HGB CONC 33.1 g/dL (32.0-36.0); MEAN CORPUSCULAR VOLUME 92.9 fL (80.0-94.0); MEAN PLATELET VOLUME 9.5 fL (7.4-11.4); MONOCYTES # (AUTO) 0.7 10^3/uL (0.0-1.0); MONOCYTES % (AUTO) 8.3 %; NEUTROPHILS % (AUTO) 80.1 %; PLT - PLATELET COUNT 263 10^3/uL (130-450); RED CELL DISTRIBUTION WIDTH 11.6 % (12.0-15.0); WHITE BLOOD COUNT 8.7 x10^3/uL (4.8-10.8)
[2020-04-23] MEDS: HEPARIN 5,000 UNIT/ML VIAL SUBQ SCH ×3 (06:40→22:49)
[2020-04-23 06:55] LABS: ALBUMIN 2.8 g/dL (3.2-5.5); BILIRUBIN,TOTAL 0.6 mg/dL (0.2-1.0); CALCIUM 8.6 mg/dL (8.5-10.3); CREATININE 0.7 mg/dL (0.6-1.2); TOTAL PROTEIN 5.7 g/dL (6.7-8.2)
[2020-04-23] MEDS: CIPROFLOXACIN 400 MG/200 ML 400 MG/200 ML BAG IV SCH (10:42)
[2020-04-23] MEDS: polyethylene glycoL 3350 17 GM PACKET PO SCH ×2 (10:47→22:45)
[2020-04-23] MEDS: DOCUSATE SODIUM 100 MG CAPSULE PO SCH ×2 (10:47→22:45)
--- NOTE | 2020-04-23 12:59 | PROVIDER PROGRESS NOTE ---
Subjective - General Admit Date: 04/19/20 Procedure Date: 04/20/20 Post Op Days: 3 Procedure Performed: Exploratory laparotomy with lysis of adhesions, appendectomy and cecectomy - Review of Systems Wound/Incisions: positive: Healing well, Other (Wound vac in place with minimal drainage) Drain Type: Serosanguinous drainage from both JPs. Primarily clear General: positive: Fatigue. negative: Fever, Weakness HEENT: positive: No symptoms Pulmonary: positive: No symptoms Cardiovascular: negative: Chest pain Gastrointestinal: positive: Flatus, Other (Stool in the bag and ostomy is working minimally). negative: Nausea, Vomiting Objective - Patient Data Vital Signs: Vital Signs x48h Temp Pulse Resp BP Pulse Ox 04/23/20 08:00 36.9 C 58 L 18 144/82 H 95 04/23/20 07:00 19 04/23/20 05:00 36.7 C 72 18 163/88 H 93 Weight: Weight 04/21/20 04/22/20 04/23/20 23:59 23:59 23:59 Weight (kg) 72.575 kg 80 kg Intake & Output: Intake and Output Totals x24h 04/21/20 04/22/20 04/23/20 23:59 23:59 23:59 Intake Total 6310.834 5682.0 750 Output Total 2758 3990 550 Balance 3552.834 1692.0 200 - Lab Results Lab Results: 04/23/20 05:20 04/23/20 05:20 Other Lab Results: Lab Results x24hrs 04/23/20 04/23/20 04/23/20 Range/Units 11:48 05:20 05:20 WBC 8.7 (4.8-10.8) x10^3/uL RBC 3.80 L (4.70-6.10) 10^6/uL Hgb 11.7 L (14.0-18.0) g/dL Hct 35.3 L (42.0-52.0) % MCV 92.9 (80.0-94.0) fL MCH 30.8 (27.0-31.0) pg MCHC 33.1 (32.0-36.0) g/dL RDW 11.6 L (12.0-15.0) % Plt Count 263 (130-450) 10^3/uL MPV 9.5 (7.4-11.4) fL Neut # (Auto) 7.0 H (1.5-6.6) 10^3/uL Lymph # (Auto) 0.8 L (1.5-3.5) 10^3/uL [place] # (Auto) 0.7 (0.0-1.0) 10^3/uL Eos # (Auto) 0.1 (0.0-0.7) 10^3/uL Baso # (Auto) 0.0 (0.0-0.1) 10^3/uL Absolute Nucleated RBC 0.00 x10^3/uL Nucleated RBC % 0.0 /100WBC Sodium 140 (135-145) mmol/L Potassium 3.7 (3.5-5.0) mmol/L Chloride 106 (101-111) mmol/L Carbon Dioxide 23 (21-32) mmol/L Anion Gap 11.0 (6-13) BUN 17 (6-20) mg/dL Creatinine 0.7 (0.6-1.2) mg/dL Estimated GFR (MDRD) 117 (>89) Glucose 131 H (70-100) mg/dL POC Whole Bld Glucose 166 H (70 - 100) mg/dL Calcium 8.6 (8.5-10.3) mg/dL Total Bilirubin 0.6 (0.2-1.0) mg/dL AST 14 (10-42) IU/L ALT 14 (10-60) IU/L Alkaline Phosphatase 46 (42-121) IU/L Total Protein 5.7 L (6.7-8.2) g/dL Albumin 2.8 L (3.2-5.5) g/dL Globulin 2.9 (2.1-4.2) g/dL Albumin/Globulin Ratio 1.0 (1.0-2.2) 04/23/20 04/23/20 04/22/20 Range/Units 05:14 00:50 18:05 WBC (4.8-10.8) x10^3/uL RBC (4.70-6.10) 10^6/uL Hgb (14.0-18.0) g/dL Hct (42.0-52.0) % MCV (80.0-94.0) fL MCH (27.0-31.0) pg MCHC (32.0-36.0) g/dL RDW (12.0-15.0) % Plt Count (130-450) 10^3/uL MPV (7.4-11.4) fL Neut # (Auto) (1.5-6.6) 10^3/uL Lymph # (Auto) (1.5-3.5) 10^3/uL [place] # (Auto) (0.0-1.0) 10^3/uL Eos # (Auto) (0.0-0.7) 10^3/uL Baso # (Auto) (0.0-0.1) 10^3/uL Absolute Nucleated RBC x10^3/uL Nucleated RBC % /100WBC Sodium (135-145) mmol/L Potassium (3.5-5.0) mmol/L Chloride (101-111) mmol/L Carbon Dioxide (21-32) mmol/L Anion Gap (6-13) BUN (6-20) mg/dL Creatinine (0.6-1.2) mg/dL Estimated GFR (MDRD) (>89) Glucose (70-100) mg/dL POC Whole Bld Glucose 130 H 163 H 169 H (70 - 100) mg/dL Calcium (8.5-10.3) mg/dL Total Bilirubin (0.2-1.0) mg/dL AST (10-42) IU/L ALT (10-60) IU/L Alkaline Phosphatase (42-121) IU/L Total Protein (6.7-8.2) g/dL Albumin (3.2-5.5) g/dL Globulin (2.1-4.2) g/dL Albumin/Globulin Ratio (1.0-2.2) - Current Medications Current Medications: Current Medications Generic Name Dose Route Start Last Admin Trade Name Freq PRN Reason Stop Dose Admin Docusate Sodium 100 mg 04/19/20 21:00 04/23/20 10:47 Docusate Sodium 100 Mg Capsule PO Not Given BID LOC Heparin Sodium (Porcine) 5,000 unit 04/19/20 22:00 04/23/20 06:40 Heparin 5,000 Unit/Ml Vial SUBQ 5,000 unit TID LOC Administration Hydromorphone HCl 0 mg 04/22/20 14:24 04/22/20 16:39 Hydromorphone Hourly [employer] 20mg/100ml IV 20 mg PRN PRN Administration Abdominal Pain Protocol Ciprofloxacin 400 mg in 200 mls @ 200 mls/hr 04/20/20 10:00 04/23/20 11:51 Cipro 400 Mg/200 Ml IV Infused Q12H LOC Infusion Metronidazole 500 mg in 100 mls @ 100 mls/hr 04/19/20 23:59 04/23/20 10:56 Flagyl 500 Mg/100 Ml IV Infused Q8H LOC Infusion Fat Emulsion Intravenous 250 mls @ 21 mls/hr 04/21/20 19:00 04/23/20 05:59 Intralipid 20% IV Infused Q24H LOC Infusion Folic Acid 1 mg/ Thiamine HCl 2,002.6 mls @ 83 mls/hr 04/22/20 19:00 04/22/20 18:04 100 mg/ TRACE ELEMENTS 1 ml/ IV 83 mls/hr Amino Ac/Electrol/Dextrose/ 1900 LOC Administration Calcium Acetaminophen 100 mls @ 400 mls/hr 04/22/20 12:36 04/23/20 05:52 Ofirmev IV Infused Q6H PRN Infusion pain Potassium Chloride/Dextrose/Sod Cl 1,000 mls @ 42 mls/hr 04/22/20 13:08 04/22/20 23:03 IV 42 mls/hr .[id number] LOC Administration Insulin Human Regular 1 - 5 unit 04/21/20 12:00 04/23/20 12:42 Insulin Regular Human 300 Unit/3 Ml Vial SUBQ 1 unit Q6HR LOC Administration Protocol Methocarbamol 500 mg 04/20/20 00:00 04/23/20 05:35 Methocarbamol 500 Mg Tablet PO 500 mg Q6HR LOC Administration Metoclopramide HCl 10 mg 04/20/20 00:00 04/23/20 12:34 Metoclopramide 10 Mg/2 Ml Vial IVP 10 mg Q6HR LOC Administration Polyethylene Glycol 17 gm 04/19/20 21:00 04/23/20 10:47 Polyethylene Glycol 3350 17 Gm Packet PO Not Given BID LOC Sodium Chloride 10 ml 04/20/20 01:00 04/23/20 10:47 Sodium Chloride Flush 0.9% 10 Ml Syringe IVP Not Given 0100,0900,1700 LOC Sodium Chloride 20 ml 04/20/20 16:12 04/23/20 05:35 Sodium Chloride Flush 0.9% 10 Ml Syringe IVP 20 ml PRN PRN Administration After TPN or Blood Draw ABX Reporting Has patient been on IV antibiotics over the past 48 hours?: Yes Impression/Plan - Problem List Problem List: Continue antibiotics and TPN. Ileus seems to be improving but not expected ro resolve quickly.
[2020-04-23] MEDS: D5NS W/20 MEQ KCL 1,000 ML IV SCH ×2 (17:46→22:56)
[2020-04-23] MEDS: FAT EMULSION 20% 250 ML IV SCH (19:03)
[2020-04-23] MEDS: THIAMINE IV SCH ×4 (19:04)
[2020-04-23] MEDS: [UNRECOGNIZED DRUG - OTHER] IV SCH ×4 (19:04)
[2020-04-23] MEDS: FOLIC ACID IV SCH ×4 (19:04)
[2020-04-23] MEDS: TPN IV SCH ×4 (19:04)
[2020-04-23] MEDS: HYDROmorphone 0.5 MG/0.5 ML SYRINGE IVP PRN (19:21)
[2020-04-24] MEDS: methocarbamoL 500 MG TABLET PO SCH ×4 (00:24→18:19)
[2020-04-24] MEDS: CIPROFLOXACIN 400 MG/200 ML 400 MG/200 ML BAG IV SCH (00:26)
[2020-04-24] MEDS: metroNIDAZOLE 500 MG/100 ML 500 MG/100 ML BAG IV SCH ×3 (00:29→16:21)
[2020-04-24] MEDS: METOCLOPRAMIDE 10 MG/2 ML VIAL IVP SCH ×4 (00:35→18:19)
[2020-04-24] MEDS: SODIUM CHLORIDE FLUSH 0.9% 10 ML SYRINGE IVP SCH ×3 (00:35→17:04)
[2020-04-24] MEDS: INSULIN REGULAR HUMAN 300 UNIT/3 ML VIAL SUBQ SCH ×4 (00:42→18:19)
[2020-04-24] MEDS: HYDROmorphone 0.5 MG/0.5 ML SYRINGE IVP PRN ×4 (01:36→20:47)
[2020-04-24] MEDS: SODIUM CHLORIDE FLUSH 0.9% 10 ML SYRINGE IVP PRN ×2 (05:23→05:39)
[2020-04-24] MEDS: ACETAMINOPHEN 1,000 MG/100 ML 100 ML IV PRN ×2 (05:28→16:21)
[2020-04-24 06:18] LABS: ALBUMIN/GLOBULIN RATIO 0.9 (1.0-2.2); BILIRUBIN,TOTAL 0.7 mg/dL (0.2-1.0); CALCIUM 8.2 mg/dL (8.5-10.3); CREATININE 0.6 mg/dL (0.6-1.2); MAGNESIUM 1.9 mg/dL (1.7-2.8); PHOSPHORUS 3.5 mg/dL (2.5-4.6); TOTAL PROTEIN 6.2 g/dL (6.7-8.2)
[2020-04-24] MEDS: HEPARIN 5,000 UNIT/ML VIAL SUBQ SCH ×3 (06:33→22:16)
[2020-04-24] MEDS: DOCUSATE SODIUM 100 MG CAPSULE PO SCH ×2 (07:53→20:47)
[2020-04-24] MEDS: polyethylene glycoL 3350 17 GM PACKET PO SCH ×2 (09:00→20:47)
--- NOTE | 2020-04-24 09:11 | PROVIDER PROGRESS NOTE ---
Subjective - General Admit Date: 04/19/20 Procedure Date: 04/20/20 Post Op Days: 4 Procedure Performed: Exploratory laparotomy with lysis of adhesions, appendectomy and cecectomy - Review of Systems Wound/Incisions: positive: Healing well, Other (Wound vac in place with minimal drainage) Drain Type: Serosanguinous drainage from both JPs. Primarily clear General: positive: Fatigue. negative: Fever, Weakness HEENT: positive: No symptoms Pulmonary: positive: No symptoms Cardiovascular: negative: Chest pain Gastrointestinal: positive: Flatus, Other (Stool in the bag and ostomy is working minimally). negative: Nausea, Vomiting - Other Other Information/Narrative: Some difficulty urinating last evening. Attempted wilhelm without success and he was finally able to urinate. Reports he feels pretty well and has been passing a small amount of flatus. Had nausea when NGT clamped yesterday but none today under the same conditions. Left upper quadrant drain has been leaking around the tubing some. Pain is well controlled. Objective - Patient Data Vital Signs: Vital Signs x48h Temp Pulse Resp BP Pulse Ox 04/24/20 08:07 36.5 C 80 16 160/98 H 94 04/24/20 05:00 37.3 C 69 16 152/89 H 94 Weight: Weight 04/22/20 04/23/20 04/24/20 23:59 23:59 23:59 Weight (kg) 80 kg 80 kg Intake & Output: Intake and Output Totals x24h 04/22/20 04/23/20 04/24/20 23:59 23:59 23:59 Intake Total 5682.0 4292.6 810 Output Total 3990 1955 663 Balance 1692.0 2337.6 147 - Lab Results Lab Results: 04/23/20 05:20 04/24/20 05:35 Other Lab Results: Lab Results x24hrs 04/24/20 04/24/20 04/24/20 Range/Units 05:48 05:35 00:42 Sodium 134 L (135-145) mmol/L Potassium 3.4 L (3.5-5.0) mmol/L Chloride 100 L (101-111) mmol/L Carbon Dioxide 24 (21-32) mmol/L Anion Gap 10.0 (6-13) BUN 16 (6-20) mg/dL Creatinine 0.6 (0.6-1.2) mg/dL Estimated GFR (MDRD) 139 (>89) Glucose 132 H (70-100) mg/dL POC Whole Bld Glucose 133 H 135 H (70 - 100) mg/dL Calcium 8.2 L (8.5-10.3) mg/dL Phosphorus 3.5 (2.5-4.6) mg/dL Magnesium 1.9 (1.7-2.8) mg/dL Total Bilirubin 0.7 (0.2-1.0) mg/dL AST 27 (10-42) IU/L ALT 23 (10-60) IU/L Alkaline Phosphatase 65 (42-121) IU/L Total Protein 6.2 L (6.7-8.2) g/dL Albumin 3.0 L (3.2-5.5) g/dL Globulin 3.2 (2.1-4.2) g/dL Albumin/Globulin Ratio 0.9 L (1.0-2.2) Prealbumin 19 (18-45) mg/dL Triglycerides 120 ( - 149) mg/dL 04/23/20 04/23/20 Range/Units 17:56 11:48 Sodium (135-145) mmol/L Potassium (3.5-5.0) mmol/L Chloride (101-111) mmol/L Carbon Dioxide (21-32) mmol/L Anion Gap (6-13) BUN (6-20) mg/dL Creatinine (0.6-1.2) mg/dL Estimated GFR (MDRD) (>89) Glucose (70-100) mg/dL POC Whole Bld Glucose 138 H 166 H (70 - 100) mg/dL Calcium (8.5-10.3) mg/dL Phosphorus (2.5-4.6) mg/dL Magnesium (1.7-2.8) mg/dL Total Bilirubin (0.2-1.0) mg/dL AST (10-42) IU/L ALT (10-60) IU/L Alkaline Phosphatase (42-121) IU/L Total Protein (6.7-8.2) g/dL Albumin (3.2-5.5) g/dL Globulin (2.1-4.2) g/dL Albumin/Globulin Ratio (1.0-2.2) Prealbumin (18-45) mg/dL Triglycerides ( - 149) mg/dL - Current Medications Current Medications: Current Medications Generic Name Dose Route Start Last Admin Trade Name Freq PRN Reason Stop Dose Admin Docusate Sodium 100 mg 04/19/20 21:00 04/24/20 07:53 Docusate Sodium 100 Mg Capsule PO 100 mg BID LOC Administration Heparin Sodium (Porcine) 5,000 unit 04/19/20 22:00 04/24/20 06:33 Heparin 5,000 Unit/Ml Vial SUBQ 5,000 unit TID LOC Administration Hydromorphone HCl 0.5 mg 04/23/20 13:45 04/24/20 03:46 Hydromorphone 0.5 Mg/0.5 Ml Syringe IVP 0.5 mg Q2H PRN Administration PAIN Ciprofloxacin 400 mg in 200 mls @ 200 mls/hr 04/20/20 10:00 04/24/20 01:26 Cipro 400 Mg/200 Ml IV Infused Q12H LOC Infusion Metronidazole 500 mg in 100 mls @ 100 mls/hr 04/19/20 23:59 04/24/20 09:00 Flagyl 500 Mg/100 Ml IV Infused Q8H LOC Infusion Fat Emulsion Intravenous 250 mls @ 21 mls/hr 04/21/20 19:00 04/24/20 07:00 Intralipid 20% IV Infused Q24H LOC Infusion Folic Acid 1 mg/ Thiamine HCl 2,002.6 mls @ 83 mls/hr 04/22/20 19:00 04/23/20 19:04 100 mg/ TRACE ELEMENTS 1 ml/ IV 83 mls/hr Amino Ac/Electrol/Dextrose/ 1900 LOC Administration Calcium Acetaminophen 100 mls @ 400 mls/hr 04/22/20 12:36 04/24/20 05:43 Ofirmev IV Infused Q6H PRN Infusion pain Potassium Chloride/Dextrose/Sod Cl 1,000 mls @ 42 mls/hr 04/22/20 13:08 22:56 IV 42 mls/hr .[id number] LOC Administration Insulin Human Regular 1 - 5 unit 04/21/20 12:00 04/24/20 06:41 Insulin Regular Human 300 Unit/3 Ml Vial SUBQ Not Given Q6HR [facility] Protocol Methocarbamol 500 mg 04/20/20 00:00 04/24/20 05:20 Methocarbamol 500 Mg Tablet PO 500 mg Q6HR LOC Administration Metoclopramide HCl 10 mg 04/20/20 00:00 04/24/20 05:22 Metoclopramide 10 Mg/2 Ml Vial IVP 10 mg Q6HR LOC Administration Polyethylene Glycol 17 gm 04/19/20 21:00 04/24/20 09:00 Polyethylene Glycol 3350 17 Gm Packet PO Not Given BID LOC Sodium Chloride 10 ml 04/20/20 01:00 04/24/20 07:58 Sodium Chloride Flush 0.9% 10 Ml Syringe IVP 10 ml 0100,0900,1700 LOC Administration Sodium Chloride 20 ml 04/20/20 16:12 04/24/20 05:39 Sodium Chloride Flush 0.9% 10 Ml Syringe IVP 20 ml PRN PRN Administration After TPN or Blood Draw - Physical Exam Respiratory: positive: Chest non-tender, No respiratory distress Abdomen: positive: Tenderness, Other (distended). negative: Guarding, Rebound Back: negative: CVA tenderness (R), CVA tenderness (L) Skin: positive: Color nml ABX Reporting Has patient been on IV antibiotics over the past 48 hours?: Yes Impression/Plan - Problem List Problem List: 1. Slow improvement. Culture results reveal e.coli resistant to cipro. Will change to Cefepime. 2. Leave NGT for now. 3. Repeat labs in the AM. 4. Left upper quadrant drain stitch obstructing flow so stitch removed and drain stripped and dressing replaced 5. Leave wound vac another day..
[2020-04-24] MEDS: TAMSULOSIN 0.4 MG CAPSULE PO SCH (09:55)
[2020-04-24] MEDS: PANTOPRAZOLE 40 MG VIAL IVP SCH (09:55)
[2020-04-24] MEDS: CEFEPIME 2 GM in SODIUM CHLORIDE 0.9% MINIBAG 100 ML IV SCH ×2 (09:55→20:47)
[2020-04-24] MEDS: FAT EMULSION 20% 250 ML IV SCH (19:06)
[2020-04-24] MEDS: [UNRECOGNIZED DRUG - OTHER] IV SCH ×4 (19:06)
[2020-04-24] MEDS: FOLIC ACID IV SCH ×4 (19:06)
[2020-04-24] MEDS: THIAMINE IV SCH ×4 (19:06)
[2020-04-24] MEDS: TPN IV SCH ×4 (19:06)
[2020-04-24] MEDS: D5NS W/20 MEQ KCL 1,000 ML IV SCH (22:00)
[2020-04-25] MEDS: metroNIDAZOLE 500 MG/100 ML 500 MG/100 ML BAG IV SCH ×3 (01:05→16:13)
[2020-04-25] MEDS: METOCLOPRAMIDE 10 MG/2 ML VIAL IVP SCH ×4 (01:13→18:48)
[2020-04-25] MEDS: methocarbamoL 500 MG TABLET PO SCH ×4 (01:13→18:48)
[2020-04-25] MEDS: SODIUM CHLORIDE FLUSH 0.9% 10 ML SYRINGE IVP PRN ×2 (01:14→06:31)
[2020-04-25] MEDS: ACETAMINOPHEN 1,000 MG/100 ML 100 ML IV PRN ×3 (01:20→19:05)
[2020-04-25] MEDS: INSULIN REGULAR HUMAN 300 UNIT/3 ML VIAL SUBQ SCH ×4 (01:27→18:49)
[2020-04-25] MEDS: SODIUM CHLORIDE FLUSH 0.9% 10 ML SYRINGE IVP SCH ×3 (05:29→17:32)
[2020-04-25] MEDS: HEPARIN 5,000 UNIT/ML VIAL SUBQ SCH ×3 (05:45→21:15)
[2020-04-25] MEDS: PANTOPRAZOLE 40 MG VIAL IVP SCH (06:30)
[2020-04-25] MEDS: DOCUSATE SODIUM 100 MG CAPSULE PO SCH ×2 (09:09→21:16)
[2020-04-25] MEDS: TAMSULOSIN 0.4 MG CAPSULE PO SCH (09:09)
[2020-04-25] MEDS: polyethylene glycoL 3350 17 GM PACKET PO SCH ×2 (09:10→21:16)
[2020-04-25] MEDS: CEFEPIME 2 GM in SODIUM CHLORIDE 0.9% MINIBAG 100 ML IV SCH ×2 (09:10→21:14)
[2020-04-25 10:46] LABS: BASOPHILS % (AUTO) 0.1 %; EOSINOPHILS # (AUTO) 0.1 10^3/uL (0.0-0.7); HGB - HEMOGLOBIN 11.3 g/dL (14.0-18.0); LYMPHOCYTES # (AUTO) 0.7 10^3/uL (1.5-3.5); LYMPHOCYTES % (AUTO) 8.9 %; MEAN CORPUSCULAR HEMOGLOBIN 31.5 pg (27.0-31.0); MEAN CORPUSCULAR HGB CONC 34.3 g/dL (32.0-36.0); MEAN CORPUSCULAR VOLUME 91.6 fL (80.0-94.0); MEAN PLATELET VOLUME 9.3 fL (7.4-11.4); MONOCYTES # (AUTO) 1.1 10^3/uL (0.0-1.0); MONOCYTES % (AUTO) 13.7 %; NEUTROPHILS # (AUTO) 5.6 10^3/uL (1.5-6.6); NEUTROPHILS % (AUTO) 72.2 %; PLT - PLATELET COUNT 283 10^3/uL (130-450); RED BLOOD COUNT 3.59 10^6/uL (4.70-6.10); RED CELL DISTRIBUTION WIDTH 11.6 % (12.0-15.0); WHITE BLOOD COUNT 7.8 x10^3/uL (4.8-10.8)
[2020-04-25] MEDS: HYDROmorphone 0.5 MG/0.5 ML SYRINGE IVP PRN (13:19)
--- NOTE | 2020-04-25 17:20 | PROVIDER PROGRESS NOTE ---
Subjective - Prog Note Date Prog Note Date: 04/25/20 - Subjective Pt reports feeling: Improved (feeling much improved. NGT is out. no nausea. mild distension. passing gas) Objective - Vital Signs/Intake & Output Reviewed Vital Signs: Yes Vital Signs: Vital Signs x48h Temp Pulse Resp BP Pulse Ox 04/25/20 15:44 36.3 C L 77 16 163/96 H 96 04/25/20 12:17 36.7 C 73 16 157/87 H 95 Intake & Output: Intake & Output 04/22/20 04/23/20 04/24/20 04/25/20 23:59 23:59 23:59 23:59 Intake Total 5682.0 4292.6 4384.767 890 Output Total 3990 1955 2405 1680 Balance 1692.0 2337.6 1979.767 790 - Objective General Appearance: positive: No acute distress, Alert ENT: positive: No signs of dehydration Neck: positive: No JVD Respiratory: positive: No respiratory distress Abdomen: positive: Other (mild distension) Neurologic/Psychiatric: positive: Oriented x3, Other (much more alert) - Lab Results Fish Bones: 04/25/20 10:36 04/24/20 05:35 Other Labs: Lab Results x24hrs 04/25/20 04/25/20 04/25/20 Range/Units 11:32 10:36 05:26 WBC 7.8 (4.8-10.8) x10^3/uL RBC 3.59 L (4.70-6.10) 10^6/uL Hgb 11.3 L (14.0-18.0) g/dL Hct 32.9 L (42.0-52.0) % MCV 91.6 (80.0-94.0) fL MCH 31.5 H (27.0-31.0) pg MCHC 34.3 (32.0-36.0) g/dL RDW 11.6 L (12.0-15.0) % Plt Count 283 (130-450) 10^3/uL MPV 9.3 (7.4-11.4) fL Neut # (Auto) 5.6 (1.5-6.6) 10^3/uL Lymph # (Auto) 0.7 L (1.5-3.5) 10^3/uL [place] # (Auto) 1.1 H (0.0-1.0) 10^3/uL Eos # (Auto) 0.1 (0.0-0.7) 10^3/uL Baso # (Auto) 0.0 (0.0-0.1) 10^3/uL Absolute Nucleated RBC 0.00 x10^3/uL Nucleated RBC % 0.0 /100WBC POC Whole Bld Glucose 125 H 128 H (70 - 100) mg/dL 04/24/20 04/24/20 Range/Units 23:42 18:18 WBC (4.8-10.8) x10^3/uL RBC (4.70-6.10) 10^6/uL Hgb (14.0-18.0) g/dL Hct (42.0-52.0) % MCV (80.0-94.0) fL MCH (27.0-31.0) pg MCHC (32.0-36.0) g/dL RDW (12.0-15.0) % Plt Count (130-450) 10^3/uL MPV (7.4-11.4) fL Neut # (Auto) (1.5-6.6) 10^3/uL Lymph # (Auto) (1.5-3.5) 10^3/uL [place] # (Auto) (0.0-1.0) 10^3/uL Eos # (Auto) (0.0-0.7) 10^3/uL Baso # (Auto) (0.0-0.1) 10^3/uL Absolute Nucleated RBC x10^3/uL Nucleated RBC % /100WBC POC Whole Bld Glucose 133 H 123 H (70 - 100) mg/dL Assessment/Plan - Problem List (1) Peritonitis Impression: much improved. if no nausea and minimal distension plan clear tomorrow dressing change/ wound vac take down tommorow and possible closure with steri strips
[2020-04-25] MEDS: FAT EMULSION 20% 250 ML IV SCH (18:49)
[2020-04-25] MEDS: [UNRECOGNIZED DRUG - OTHER] IV SCH ×4 (18:49)
[2020-04-25] MEDS: FOLIC ACID IV SCH ×4 (18:49)
[2020-04-25] MEDS: THIAMINE IV SCH ×4 (18:49)
[2020-04-25] MEDS: TPN IV SCH ×4 (18:49)
[2020-04-25] MEDS: D5NS W/20 MEQ KCL 1,000 ML IV SCH (21:17)
[2020-04-25] MEDS: SODIUM CHLORIDE 0.9% 250 ML IV PRN (21:17)
[2020-04-26] MEDS: INSULIN REGULAR HUMAN 300 UNIT/3 ML VIAL SUBQ SCH ×2 (00:05→07:04)
[2020-04-26] MEDS: methocarbamoL 500 MG TABLET PO SCH ×4 (00:35→18:38)
[2020-04-26] MEDS: METOCLOPRAMIDE 10 MG/2 ML VIAL IVP SCH ×4 (00:35→18:38)
[2020-04-26] MEDS: metroNIDAZOLE 500 MG/100 ML 500 MG/100 ML BAG IV SCH ×3 (00:35→16:43)
[2020-04-26] MEDS: SODIUM CHLORIDE FLUSH 0.9% 10 ML SYRINGE IVP SCH ×3 (00:36→19:50)
[2020-04-26] MEDS: HYDROmorphone 0.5 MG/0.5 ML SYRINGE IVP PRN (03:06)
[2020-04-26] MEDS: PANTOPRAZOLE 40 MG VIAL IVP SCH (06:01)
[2020-04-26] MEDS: SODIUM CHLORIDE FLUSH 0.9% 10 ML SYRINGE IVP PRN (06:02)
[2020-04-26] MEDS: HEPARIN 5,000 UNIT/ML VIAL SUBQ SCH ×3 (06:02→21:30)
[2020-04-26 06:31] LABS: ALBUMIN 3.3 g/dL (3.2-5.5); BILIRUBIN,TOTAL 0.4 mg/dL (0.2-1.0); CALCIUM 8.5 mg/dL (8.5-10.3); CREATININE 0.7 mg/dL (0.6-1.2); MAGNESIUM 2.1 mg/dL (1.7-2.8); PHOSPHORUS 3.4 mg/dL (2.5-4.6); TOTAL PROTEIN 6.7 g/dL (6.7-8.2)
[2020-04-26] MEDS: TAMSULOSIN 0.4 MG CAPSULE PO SCH (09:02)
[2020-04-26] MEDS: polyethylene glycoL 3350 17 GM PACKET PO SCH ×2 (09:02→21:31)
[2020-04-26] MEDS: CEFEPIME 2 GM in SODIUM CHLORIDE 0.9% MINIBAG 100 ML IV SCH ×2 (09:02→21:27)
[2020-04-26] MEDS: DOCUSATE SODIUM 100 MG CAPSULE PO SCH ×2 (09:02→21:31)
--- NOTE | 2020-04-26 17:49 | PROVIDER PROGRESS NOTE ---
Subjective - Subjective Pt reports feeling: Improved (having bms. no nausea. less distended) Objective - Vital Signs/Intake & Output Reviewed Vital Signs: Yes Vital Signs: Vital Signs x48h Temp Pulse Resp BP Pulse Ox 04/26/20 16:00 37.1 C 84 16 158/93 H 97 04/26/20 12:05 37.4 C 84 14 160/96 H 99 Intake & Output: Intake & Output 04/23/20 04/24/20 04/25/20 04/26/20 23:59 23:59 23:59 23:59 Intake Total 4292.6 4384.767 4445.283 488.05 Output Total 1955 2405 2210 2635 Balance 2337.6 0957.991 2124.283 -2146.95 - Objective General Appearance: positive: No acute distress, Alert Neck: positive: No JVD Respiratory: positive: No respiratory distress Abdomen: positive: Non-tender, Other (minimal distension. wound vac removed. clean wound. closed with steristrips) Neurologic/Psychiatric: positive: Oriented x3 - Lab Results Fish Bones: 04/25/20 10:36 04/26/20 06:00 Other Labs: Lab Results x24hrs 04/26/20 04/26/20 04/26/20 Range/Units 11:41 06:27 06:00 Sodium 133 L (135-145) mmol/L Potassium 4.0 (3.5-5.0) mmol/L Chloride 101 (101-111) mmol/L Carbon Dioxide 22 (21-32) mmol/L Anion Gap 10.0 (6-13) BUN 15 (6-20) mg/dL Creatinine 0.7 (0.6-1.2) mg/dL Estimated GFR (MDRD) 117 (>89) Glucose 120 H (70-100) mg/dL POC Whole Bld Glucose 109 H 112 H (70 - 100) mg/dL Calcium 8.5 (8.5-10.3) mg/dL Phosphorus 3.4 (2.5-4.6) mg/dL Magnesium 2.1 (1.7-2.8) mg/dL Total Bilirubin 0.4 (0.2-1.0) mg/dL AST 30 (10-42) IU/L ALT 36 (10-60) IU/L Alkaline Phosphatase 132 H (42-121) IU/L Total Protein 6.7 (6.7-8.2) g/dL Albumin 3.3 (3.2-5.5) g/dL Globulin 3.4 (2.1-4.2) g/dL Albumin/Globulin Ratio 1.0 (1.0-2.2) Prealbumin 26 (18-45) mg/dL Triglycerides 158 H ( - 149) mg/dL 04/26/20 04/25/20 Range/Units 00:21 17:49 Sodium (135-145) mmol/L Potassium (3.5-5.0) mmol/L Chloride (101-111) mmol/L Carbon Dioxide (21-32) mmol/L Anion Gap (6-13) BUN (6-20) mg/dL Creatinine (0.6-1.2) mg/dL Estimated GFR (MDRD) (>89) Glucose (70-100) mg/dL POC Whole Bld Glucose 128 H 134 H (70 - 100) mg/dL Calcium (8.5-10.3) mg/dL Phosphorus (2.5-4.6) mg/dL Magnesium (1.7-2.8) mg/dL Total Bilirubin (0.2-1.0) mg/dL AST (10-42) IU/L ALT (10-60) IU/L Alkaline Phosphatase (42-121) IU/L Total Protein (6.7-8.2) g/dL Albumin (3.2-5.5) g/dL Globulin (2.1-4.2) g/dL Albumin/Globulin Ratio (1.0-2.2) Prealbumin (18-45) mg/dL Triglycerides ( - 149) mg/dL Assessment/Plan - Problem List (1) Peritonitis Impression: improving. skin edges reapproximated with steri stips diet clears
[2020-04-26] MEDS ORDERED: INSULIN REGULAR HUMAN 300 UNIT/3 ML VIAL SUBQ SCH (18:00)
[2020-04-26] MEDS: MULTIVITAMIN W/MINERALS TABLET PO SCH (18:38)
[2020-04-26] MEDS: [UNRECOGNIZED DRUG - OTHER] IV SCH ×4 (19:30)
[2020-04-26] MEDS: THIAMINE IV SCH ×4 (19:30)
[2020-04-26] MEDS: FOLIC ACID IV SCH ×4 (19:30)
[2020-04-26] MEDS: FAT EMULSION 20% 250 ML IV SCH (19:30)
[2020-04-26] MEDS: TPN IV SCH ×4 (19:30)
[2020-04-26] MEDS: D5NS W/20 MEQ KCL 1,000 ML IV SCH (21:27)
[2020-04-27] MEDS: metroNIDAZOLE 500 MG/100 ML 500 MG/100 ML BAG IV SCH ×3 (00:23→15:53)
[2020-04-27] MEDS: SODIUM CHLORIDE FLUSH 0.9% 10 ML SYRINGE IVP PRN ×2 (00:23→06:04)
[2020-04-27] MEDS: SODIUM CHLORIDE FLUSH 0.9% 10 ML SYRINGE IVP SCH ×3 (00:23→17:33)
[2020-04-27] MEDS: METOCLOPRAMIDE 10 MG/2 ML VIAL IVP SCH ×4 (00:23→17:31)
[2020-04-27] MEDS: methocarbamoL 500 MG TABLET PO SCH ×4 (00:23→17:30)
[2020-04-27] MEDS: ACETAMINOPHEN 325 MG TABLET PO PRN ×2 (05:11→09:33)
[2020-04-27] MEDS: PANTOPRAZOLE 40 MG VIAL IVP SCH (06:02)
[2020-04-27] MEDS: SODIUM CHLORIDE 0.9% 250 ML IV PRN (06:06)
[2020-04-27] MEDS: HEPARIN 5,000 UNIT/ML VIAL SUBQ SCH ×3 (06:20→22:02)
[2020-04-27] MEDS ORDERED: MULTIVITAMIN W/MINERALS TABLET PO SCH (08:00)
--- NOTE | 2020-04-27 08:22 | PROVIDER PROGRESS NOTE ---
Subjective - Prog Note Date Prog Note Date: 04/27/20 - Subjective Pt reports feeling: Improved (appetite returning. abdomen less distended) Objective - Vital Signs/Intake & Output Reviewed Vital Signs: Yes Vital Signs: Vital Signs x48h Temp Pulse Resp BP Pulse Ox 04/27/20 07:30 37.4 C 85 22 166/92 H 96 04/27/20 05:00 36.7 C 95 16 160/96 H 94 04/27/20 01:55 37.3 C 87 16 173/100 H 95 Intake & Output: Intake & Output 04/24/20 04/25/20 04/26/20 04/27/20 23:59 23:59 23:59 23:59 Intake Total 4384.767 4445.283 3931.20 340 Output Total 2405 2210 2655 1380 Balance 6797.412 9080.283 1276.20 -1040 - Objective General Appearance: positive: No acute distress, Alert ENT: positive: No signs of dehydration Neck: positive: No JVD Respiratory: positive: No respiratory distress Abdomen: positive: Non-tender, Other (minimal distension no erythema) - Lab Results Fish Bones: 04/25/20 10:36 04/26/20 06:00 Other Labs: Lab Results x24hrs 04/27/20 04/27/20 04/26/20 Range/Units 05:48 00:35 17:46 POC Whole Bld Glucose 107 H 125 H 117 H (70 - 100) mg/dL 04/26/20 Range/Units 11:41 POC Whole Bld Glucose 109 H (70 - 100) mg/dL Assessment/Plan - Problem List (1) Peritonitis Impression: continued daily improvement diet as tolerated d/c drains d/c tpn daily dressing changes
[2020-04-27] MEDS: TAMSULOSIN 0.4 MG CAPSULE PO SCH (08:31)
[2020-04-27] MEDS: MULTIVITAMIN W/MINERALS TABLET PO SCH (08:32)
[2020-04-27] MEDS: CEFEPIME 2 GM in SODIUM CHLORIDE 0.9% MINIBAG 100 ML IV SCH ×2 (08:32→21:25)
[2020-04-27] MEDS: polyethylene glycoL 3350 17 GM PACKET PO SCH ×2 (09:25→22:05)
[2020-04-27] MEDS: DOCUSATE SODIUM 100 MG CAPSULE PO SCH ×2 (09:25→22:05)
--- NOTE | 2020-04-27 10:00 | OPERATIVE REPORT ---
DATE OF SERVICE: 04/20/2020 Physician: Ty Gee MD ADDENDUM INDICATIONS: This patient has a known history of prior laparotomy for testicular cancer and underwent a retroperitoneal aortic lymph node dissection, who had presented with a several day history of abdominal pain. Imaging performed at the time of his CT scan revealed diffuse enteritis and colitis. However, there was no fluid collection or other abscess noted at that time. Moreover the patient had no peritoneal signs, with neither pneumoperitoneum on imaging nor rebound and guarding. The patient was admitted with bowel rest and IV antibiotics and was re-imaged the day of surgery and was noted for a dilated fluid-filled appendix, which was not clearly apparent on historic imaging, apparently perforated with developing phlegmon and abscess and was advised of the indication to undergo operative intervention. The patient was counseled that the surgery could be complicated by a necessary ostomy given the extent of his inflammatory changes diffusely and likely the chronicity of his ongoing abdominal process. Moreover, the patient was also counseled the ability to proceed laparoscopically would be limited by the extent of his inflammatory changes, and along with his history of prior complex abdominal intervention, and these collectively might be obstacles to minimal access surgery. DESCRIPTION OF PROCEDURE: The patient was taken to the operating room, put supine on the operating table. The patient was placed for Castillo catheter after having been induced for general endotracheal anesthesia. The patient was prepped and draped in the usual sterile fashion. A timeout was called and agreed to by all in the room. We proceeded with a circumlinear incision along the patient's historic scar, left lateral, through the periumbilical skin to the fascia. We elevated the fascia after liberating the umbilicus and entered the abdomen sharply without any consequential hollow viscus injury. Immediately, it was appreciated the patient had dense adhesions on finger sweep and cursory evaluation and was without any possible chance to proceed with minimal access surgery, as there was no appreciable window to insert additional trocar safely and proceed with insufflation. At this time, we deferred any further minimal access surgery and proceeded with exploratory laparotomy. Using the patient's historical scar, we lengthened the incision superiorly and inferiorly and carefully proceeded for an abdominal access, anticipating dense abdominal adhesions. We deepened the incision using Bovie electrocautery through the skin and subcutaneous fat, ultimately sharply divided the fascia, and carefully liberated the underlying bowel from its dense attachments to the posterior fascia using careful and diligent sharp dissection with Metzenbaum scissors and a scalpel. Abdominal exposure was tedious and time consuming, and we were able only to insert the Romeo wound ring after nearly 1 hour of adhesiolysis, during which there was no inadvertent hollow viscus injury or other unintended consequence of the patient's eek bowel. Once this was achieved, the patient was noted for what were diffuse small-bowel inflammatory changes consistent with a secondary enteritis and a large hard phlegmonous suprapubic mass, which was consistent with a contained perforation at the level of his appendix. We proceeded to also note a diffuse inflammatory ileus, likely secondary to the patient's localized peritonitis and long standing inflammation. We carefully continued with lysis of adhesions for the entirety of the length of the small bowel all the way from the ligament of Treitz to the terminal ileum. Once this was completed, bowel looked diffusely dilated, and this blackfeet with sharp and tedious adhesiolysis using both scissors and scalpel dissection with countertraction necessitated an additional hour of intervention. At this time, we noted a largely inflamed appendix with secondary inflammatory changes extending into the cecum and significant terminal ileitis as well. Towards decompressing the bowel for closure and towards symptomatic relief, we advised anesthesia to place a nasogastric tube, which we ultimately achieved after multiple attempts and confirmed for placement in the gastric body. Thereafter, we performed a cecotomy after placing a pursestring suture and placed a sterile 18-Ukrainian nasogastric tube retrograde through this colotomy to decompress the bowel of several liters of stagnant enteric contents secondary to patient's ileus. Once this was completed and there was no complication as it relates to feculent spillage, we proceeded to close this defect and opted to perform a stapled partial cecectomy to comparably healthy and supple large bowel to incorporate the appendix as well. Thus, a window was bluntly made using Shahida clamp at the cecal appendiceal junction, and ultimately a 60 load of Endo- PRISCILA stapler was used to also encompass the historic cecotomy as well. The ileocecal valve was protected and identified throughout, as was the right ureter. We divided the mesoappendix also with a vascular load of the Endo-PRISCILA stapler as well. At this time, and with the help of Dr. Juan Francisco Peoples who was present for the majority of this case given his extensive experience and co-surgical skill, we proceeded to evaluate the remnant bowel to assure there was no missed injury or other associated complication. Two areas of serosal injury, likely from small dilation secondary to ileus, were repaired with simple Lembert sutures without any concern for full-thickness injury, and there was no concern for any narrowing or stenosis. We ran the bowel several times, again without any other concerns. We again confirmed the placement of the nasogastric tube in the stomach. We aggressively irrigated and aspirated the abdomen clear for several liters of warm saline and proceeded to widely drain the abdomen. A left upper quadrant Cristobal drain was placed in the pelvis to include the area of phlegmonous change, which also on evaluation involving not only the cecum and appendix, but also the terminal ileum as well as the sigmoid colon as well, which was all mobilized free and evaluated without any complication. The left lower quadrant drain was extended all the way up to include the dome of the liver given the concerns for possible delayed presentation of abdominal abscess in this patient with dense abdominal adhesions. We proceeded to place Seprafilm, 2 sheets, throughout the abdomen to prevent any complications as it relates to adhesive disease in this patient who likely had evidence of chronic small-bowel obstruction given his longstanding and remote diffuse abdominal intervention. Please note that the patient had history of paraaortic lymph node dissection remotely nearly 2 decades prior and had dense and longstanding adhesions from that surgical intervention, which precluded minimal access surgical intervention today. We proceeded with abdominal closure after having already irrigated, checked for hemostasis, and placed drains X2, and installed Seprafilm antiadhesive barrier. We closed bi-directionally with looped PDS, which was closed in the midline. There was no tension, and the patient tolerated well. We opted against closing the abdominal skin secondary to contamination and placed a wound VAC in the usual fashion. Both Cristobal drains were secured in place with 2-0 nylon sutures. These were placed to self-suction bulb drainage. The patient was ultimately placed for tap blocks per anesthesia. Cristobal drains were dressed with Biopatches and Tegaderm dressing. The patient tolerated the procedure well with no complications. I was present for the entirety of this operative intervention. Please note that Dr. Juan Francisco Peoples was present, who was very important throughout this case for dissection, adhesiolysis, exposure, evaluation, and assistance with closure as well. RYAN: 04/25/2020 10:53 TD: 04/25/2020 11:02 NATHALIE
[2020-04-27] MEDS: THIAMINE IV SCH ×4 (19:03)
[2020-04-27] MEDS: [UNRECOGNIZED DRUG - OTHER] IV SCH ×4 (19:03)
[2020-04-27] MEDS: TPN IV SCH ×4 (19:03)
[2020-04-27] MEDS: FOLIC ACID IV SCH ×4 (19:03)
[2020-04-27] MEDS: D5NS W/20 MEQ KCL 1,000 ML IV SCH (22:04)
[2020-04-28] MEDS: methocarbamoL 500 MG TABLET PO SCH ×3 (00:20→11:52)
[2020-04-28] MEDS: metroNIDAZOLE 500 MG/100 ML 500 MG/100 ML BAG IV SCH ×2 (00:20→09:59)
[2020-04-28] MEDS: METOCLOPRAMIDE 10 MG/2 ML VIAL IVP SCH ×3 (00:20→11:52)
[2020-04-28] MEDS: SODIUM CHLORIDE FLUSH 0.9% 10 ML SYRINGE IVP SCH ×2 (00:21→06:31)
[2020-04-28] MEDS: HEPARIN 5,000 UNIT/ML VIAL SUBQ SCH (06:29)
[2020-04-28] MEDS: PANTOPRAZOLE 40 MG VIAL IVP SCH (06:30)
--- NOTE | 2020-04-28 09:10 | Discharge Plan ---
Discharge Plan Problem Reviewed?: Yes Disposition: Home, Self Care Condition: Poor Diet: Regular Activity Restrictions: Activity as Tolerated Shower Restrictions: Yes (keep incision area dry until wednesday 05/03) Driving Restrictions: No Additional Instructions or Follow Up instructions: dry dressing change to incision area twice daily and as needed call the surgery office with any concerns call the surgery office and make a follow up appointment with Dr Gee or Dr Peoples for next week [phone] No Smoking: If you smoke, Please STOP! Call for help.
--- NOTE | 2020-04-28 09:13 | DISCHARGE SUMMARY ---
"Discharge Summary Admit Date: 04/19/20 Discharge Date: 04/28/20 Discharging Provider: juan c love Code Status: Attempt Resuscitation Condition at Discharge: Good - DIAGNOSES Admission Diagnoses: peritonitis Discharge Diagnoses with Status of Each Condition: acute on chronic appendicitis with peritonitis and diffuse inflammatory response of the small bowel home in good condition - HPI History of Present Illness: present with abdominal pain and inflammatory response small bowel had exploratory laparotomy with washout abdomen, appendectomy, partial cecectomy. prolonged ileus as anticipated treated with ng tube, tpn, antibiotics - CONSULTS | PROCEDURES Procedures: as above - HOSPITAL COURSE Hospital Course: as above. daily improvement and home 04/28/2020 in good condition - ALLERGIES Allergies/Adverse Reactions: Allergies Allergy/AdvReac Type Severity Reaction Status Date / Time No Known Drug Allergies Allergy Verified 04/19/20 15:06 - MEDICATIONS Home Medications: Ambulatory Orders Medication Instructions Recorded Confirmed No Known Home Medications 04/19/20 04/19/20 - PHYSICAL EXAM AT DISCHARGE General Appearance: positive: No acute distress, Alert Eyes Bilateral: positive: Normal inspection, PERRL, EOMI Respiratory: positive: No respiratory distress Abdomen: positive: Non-tender, No distention, Other (no erythema. dressing changed) Neurologic/Psychiatric: positive: Oriented x3 - LABS Result Diagrams: 04/25/20 10:36 04/26/20 06:00 - FOLLOW UP Follow Up: surgery office next week and as needed [phone]"
[2020-04-28] MEDS: polyethylene glycoL 3350 17 GM PACKET PO SCH (09:26)
[2020-04-28] MEDS: DOCUSATE SODIUM 100 MG CAPSULE PO SCH (09:26)
[2020-04-28] MEDS: TAMSULOSIN 0.4 MG CAPSULE PO SCH (09:59)
[2020-04-28] MEDS: MULTIVITAMIN W/MINERALS TABLET PO SCH (09:59)
[2020-04-28 11:17] VITALS: BP 159/92
[2020-04-28] MEDS: CEFEPIME 2 GM in SODIUM CHLORIDE 0.9% MINIBAG 100 ML IV SCH (11:36)
== END 2020-04-28 12:22 | disposition home or self-care (01) | DRG 330 ==
LOC: ED 15:03 → MS2 19:53 → ICU 04-20 14:58 → MS2 04-21 18:33
PROVIDERS: ADMIT Surgery; ATTEND Surgery
PROC: 0DBH0ZZ Excision of Cecum, Open Approach (ICD-10-PCS; 2020-04-20)
PROC: 0DQB0ZZ Repair Ileum, Open Approach (ICD-10-PCS; 2020-04-20)
PROC: 0DN90ZZ Release Duodenum, Open Approach (ICD-10-PCS; 2020-04-20)
PROC: 0DNB0ZZ Release Ileum, Open Approach (ICD-10-PCS; 2020-04-20)
PROC: 0DNF0ZZ Release Right Large Intestine, Open Approach (ICD-10-PCS; 2020-04-20)
PROC: 3E0M05Z Introduction of Adhesion Barrier into Peritoneal Cavity, Open Approach (ICD-10-PCS; 2020-04-20)
PROC: 0DTJ0ZZ Resection of Appendix, Open Approach (ICD-10-PCS; principal; 2020-04-20 12:00)
PROC: 02HV33Z Insertion of Infusion Device into Superior Vena Cava, Percutaneous Approach (ICD-10-PCS; 2020-04-21)
PROC: 3E0436Z Introduction of Nutritional Substance into Central Vein, Percutaneous Approach (ICD-10-PCS; 2020-04-21)
DX: K35.21 Acute appendicitis with generalized peritonitis, with abscess (principal); K56.699 Other intestinal obstruction unspecified as to partial versus complete obstruction; K66.0 Peritoneal adhesions (postprocedural) (postinfection); K52.89 Other specified noninfective gastroenteritis and colitis; E66.3 Overweight; Z68.29 Body mass index [BMI] 29.0-29.9, adult; Z85.47 Personal history of malignant neoplasm of testis; Z90.79 Acquired absence of other genital organ(s); Z92.3 Personal history of irradiation; Z20.822 Contact with and (suspected) exposure to COVID-19
CPT/HCPCS: 0202U; 36415; 71045; 74018; 74177; 80053; 81001; 83690; 83735; 84100; 84134; 84478; 85025; 87070; 87077; 87150; 87181; 87205; 96365; 96366; 96375; 99284; 99285; A9270; J0131; J1170; J1815; J2765; J3411; J3490; J7120; Q9967; 81003; 87086

== ENCOUNTER 2020-06-15 08:00 | Outpatient (CLI) | payer OTHER ==
[2020-06-15 18:28] LABS: BASOPHILS % (AUTO) 0.5 %; EOSINOPHILS % (AUTO) 0.2 %; HCT - HEMATOCRIT 43.3 % (42.0-52.0); HGB - HEMOGLOBIN 14.3 g/dL (14.0-18.0); LYMPHOCYTES # (AUTO) 1.1 10^3/uL (1.5-3.5); LYMPHOCYTES % (AUTO) 26.1 %; MEAN CORPUSCULAR VOLUME 90.8 fL (80.0-94.0); MONOCYTES # (AUTO) 0.5 10^3/uL (0.0-1.0); NEUTROPHILS # (AUTO) 2.6 10^3/uL (1.5-6.6); PLT - PLATELET COUNT 247 10^3/uL (130-450); RED BLOOD COUNT 4.77 10^6/uL (4.70-6.10); RED CELL DISTRIBUTION WIDTH 13.5 % (12.0-15.0); WHITE BLOOD COUNT 4.3 x10^3/uL (4.8-10.8)
[2020-06-15 18:54] LABS: ALBUMIN 4.7 g/dL (3.2-5.5); ALBUMIN/GLOBULIN RATIO 1.9 (1.0-2.2); ALKALINE PHOSPHATASE 42 IU/L (42-121); ALT ALANINE AMINOTRANSFERASE 21 IU/L (10-60); AST ASPARTATE AMINOTRANSFERASE 19 IU/L (10-42); BILIRUBIN,TOTAL 1.3 mg/dL (0.2-1.0); BUN - BLOOD UREA NITROGEN 12 mg/dL (6-20); CALCIUM 9.2 mg/dL (8.5-10.3); CARBON DIOXIDE - CO2 24 mmol/L (21-32); CHLORIDE 100 mmol/L (101-111); CHOL/HDL RATIO 2.4 (<5.0); CHOLESTEROL 185 mg/dL; CREATININE 0.7 mg/dL (0.6-1.2); GFR - MDRD 117 (>89); GLUCOSE 92 mg/dL (70-100); HDL CHOLESTEROL 78 mg/dL; LDL CHOLESTEROL,CALCULATED 96 mg/dL; LDL/HDL RATIO 1.2 (<3.6); POTASSIUM 4.3 mmol/L (3.5-5.0); SODIUM 137 mmol/L (135-145); TOTAL PROTEIN 7.2 g/dL (6.7-8.2); TRIGLYCERIDES 55 mg/dL; VLDL CHOLESTEROL 11 mg/dL
== END 2020-06-15 23:59 | disposition home or self-care (01) ==
LOC: LAB.WCP 08:00
PROVIDERS: ATTEND Family Medicine
DX: Z00.00 Encounter for general adult medical examination without abnormal findings (principal); Z12.5 Encounter for screening for malignant neoplasm of prostate
CPT/HCPCS: 36415; 80053; 80061; 83721; 84153; 85025

== ENCOUNTER 2020-08-12 11:16 | Day surgery (SDC) | payer OTHER ==
[2020-08-12] MEDS ORDERED: LACTATED RINGERS 1,000 ML IV ONE ×2 (11:22→13:21)
[2020-08-12] MEDS ORDERED: MIDAZOLAM 2 MG/2 ML VIAL ONE ×2 (12:29→12:53)
[2020-08-12] MEDS ORDERED: fentaNYL 250 MCG/5 ML VIAL ONE (12:29)
[2020-08-12 13:37] VITALS: BP 120/77
== END 2020-08-12 11:17 | disposition home or self-care (01) ==
LOC: SDS 11:16
PROVIDERS: ATTEND Surgery
DX: Z12.11 Encounter for screening for malignant neoplasm of colon (principal); Z86.010 Personal history of colon polyps
CPT/HCPCS: 45378; J3010; J7120

== ENCOUNTER 2022-07-13 15:42 | Outpatient (CLI) | payer OTHER ==
[2022-07-13 17:52] LABS: BASOPHILS % (AUTO) 0.5 %; HCT - HEMATOCRIT 46.7 % (42.0-52.0); HGB - HEMOGLOBIN 15.4 g/dL (14.0-18.0); LYMPHOCYTES # (AUTO) 0.9 10^3/uL (1.5-3.5); LYMPHOCYTES % (AUTO) 22.3 %; MEAN CORPUSCULAR HEMOGLOBIN 30.8 pg (27.0-31.0); MEAN CORPUSCULAR VOLUME 93.4 fL (80.0-94.0); MEAN PLATELET VOLUME 9.5 fL (7.4-11.4); MONOCYTES # (AUTO) 0.5 10^3/uL (0.0-1.0); MONOCYTES % (AUTO) 12.2 %; NEUTROPHILS # (AUTO) 2.5 10^3/uL (1.5-6.6); NEUTROPHILS % (AUTO) 63.7 %; PLT - PLATELET COUNT 223 10^3/uL (130-450); RED CELL DISTRIBUTION WIDTH 12.5 % (12.0-15.0); WHITE BLOOD COUNT 3.9 x10^3/uL (4.8-10.8)
[2022-07-13 18:10] LABS: ALBUMIN 4.5 g/dL (3.2-5.5); ALBUMIN/GLOBULIN RATIO 1.5 (1.0-2.2); ALKALINE PHOSPHATASE 32 IU/L (42-121); ALT ALANINE AMINOTRANSFERASE 20 IU/L (10-60); AST ASPARTATE AMINOTRANSFERASE 19 IU/L (10-42); BILIRUBIN,TOTAL 1.2 mg/dL (0.2-1.0); BUN - BLOOD UREA NITROGEN 17 mg/dL (6-20); CALCIUM 9.5 mg/dL (8.5-10.3); CARBON DIOXIDE - CO2 28 mmol/L (21-32); CHLORIDE 105 mmol/L (101-111); CHOLESTEROL 212 mg/dL; CREATININE 0.8 mg/dL (0.6-1.2); GFR - MDRD 99 (>89); GLUCOSE 111 mg/dL (70-100); HDL CHOLESTEROL 104 mg/dL; LDL CHOLESTEROL,CALCULATED 91 mg/dL; LDL/HDL RATIO 0.9 (<3.6); POTASSIUM 4.1 mmol/L (3.5-5.0); SODIUM 141 mmol/L (135-145); TOTAL PROTEIN 7.6 g/dL (6.7-8.2); TRIGLYCERIDES 83 mg/dL; VLDL CHOLESTEROL 17 mg/dL
[2022-07-13 18:20] LABS: THYROID STIMULATING HORMONE 2.84 uIU/mL (0.34-5.60)
== END 2022-07-13 15:43 | disposition home or self-care (01) ==
LOC: LAB.N 15:42
PROVIDERS: ATTEND Nurse Practitioner Family
DX: Z00.00 Encounter for general adult medical examination without abnormal findings (principal); Z12.5 Encounter for screening for malignant neoplasm of prostate
CPT/HCPCS: 36415; 80053; 80061; 83721; 84153; 84443; 85025